=== PATIENT | male | born 1950 | race Caucasian/White ===

== ENCOUNTER 2019-12-10 07:14 | Outpatient (REF) | payer OTHER, SELFPAY ==
[2019-12-10 07:40] LABS: MANUAL DIFF FLAG NO
[2019-12-10 07:46] LABS: Basophils Percent Auto 0.5 % (0-2); Eosinophils Absolute Auto 0.1 X10*3/uL (0.0-0.4); Eosinophils Percent Auto 2.2 % (0-4); Hematocrit 38.9 % (42-52); Hemoglobin 13.2 g/dl (14.0-18.0); Imm Gran Abs Auto 0.02 X10*3/uL (0.00-0.03); Imm Gran Pct Auto 0.3 % (0.0-0.4); Lymphocytes Absolute Auto 1.5 X10*3/uL (1.2-4.9); Lymphocytes Percent Auto 24.8 % (20-40); Mean Corpuscular HGB Conc 33.9 g/dl (31.0-36.0); Mean Corpuscular Hemoglobin 31.1 pg (27.0-33.0); Mean Corpuscular Volume 91.5 fL (80-98); Mean Platelet Volume 10.2 fL (9.4-12.4); Monocytes Absolute Auto 0.5 X10*3/uL (0.1-1.2); Monocytes Percent Auto 8.2 % (2-11); Neutrophils Absolute Auto 3.7 X10*3/uL (2.0-8.3); Platelet Count 186 X10*3/uL (160-400); Red Blood Count 4.25 X10*6/uL (4.60-5.80); Red Cell Distribution Width 12.7 % (11.0-16.0); White Blood Count 5.8 X10*3/uL (4.8-10.8)
[2019-12-10 08:26] LABS: Creatinine Urine 79.32 mg/dL; Microalbumin Urine < 5.0 mg/L
[2019-12-10 08:41] LABS: Glucose Urine UA NEG (NEG); Leukocyte Esterase Urine NEG (NEG); Nitrite Urine NEG (NEG); Urine Blood NEG (NEG); Urine Ketones NEG (NEG); Urine Protein NEG (NEG-TRACE)
[2019-12-10 08:43] LABS: Alanine Aminotransferase 32 U/L (0-40); Albumin Level 4.1 g/dL (3.5-5.0); Alkaline Phosphatase 69 U/L (39-117); Anion Gap 8 (12-20); Aspartate Amino Transferase 20 U/L (5-37); Bilirubin Total 0.6 mg/dL (0.0-1.0); Blood Urea Nitrogen 19 mg/dL (9-16); Carbon Dioxide 31 mmol/L (22-29); Chloride 103 mmol/L (96-108); Cholesterol 141 mg/dL; Estimated Glomerular Filt Rate > 60; Glucose Fasting 161 mg/dL (60-99); HDL Cholesterol 47 mg/dL; LDL Cholesterol Calculated 80 mg/dl; Potassium 4.3 mmol/l (3.3-5.1); Sodium 138 mmol/L (135-145); Total Protein 6.3 g/dL (6.5-8.0); Triglycerides 74 mg/dL
[2019-12-10 08:44] LABS: Appearance Urine CLEAR; Color Urine YELLOW
[2019-12-10 09:01] LABS: Prostate Specific Antigen 2.37 ng/mL (<0.05-4.0)
[2019-12-10 09:27] LABS: Estimated Average Glucose 134 mg/dL; Hemoglobin A1c % 6.3 %
== END 2019-12-10 07:15 | disposition home or self-care (01) ==
LOC: HO.LAB 07:14
PROVIDERS: PCP Internal Medicine; Visit Provider Internal Medicine
DX: Z00.00 Encounter for general adult medical examination without abnormal findings (principal); E11.9 Type 2 diabetes mellitus without complications; E78.00 Pure hypercholesterolemia, unspecified; R97.20 Elevated prostate specific antigen [PSA]; Z12.5 Encounter for screening for malignant neoplasm of prostate
CPT/HCPCS: 36415; 80053; 80061; 81003; 82043; 83036; 84153; 85025

== ENCOUNTER 2020-06-17 07:13 | Outpatient (REF) | payer OTHER, SELFPAY ==
[2020-06-17 08:50] LABS: Estimated Average Glucose 131 mg/dL; Hemoglobin A1C 149.1456 umol/L; Hemoglobin A1c % 6.2 %
[2020-06-17 09:04] LABS: Alanine Aminotransferase 25 U/L (0-40); Alkaline Phosphatase 72 U/L (39-117); Aspartate Amino Transferase 18 U/L (5-37); Bilirubin Direct 0.3 mg/dL (0.0-0.5); Bilirubin Total 0.4 mg/dL (0.0-1.0); Cholesterol 140 mg/dL; Glucose Fasting 135 mg/dL (60-99); HDL Cholesterol 46 mg/dL; LDL Cholesterol Calculated 79 mg/dl; Total Protein 6.3 g/dL (6.5-8.0); Triglycerides 77 mg/dL
[2020-06-17 09:30] LABS: Reflex LDLD? No
== END 2020-06-17 07:14 | disposition home or self-care (01) ==
LOC: HO.LAB 07:13
PROVIDERS: PCP Internal Medicine; Visit Provider Internal Medicine
DX: E78.00 Pure hypercholesterolemia, unspecified (principal); E11.9 Type 2 diabetes mellitus without complications
CPT/HCPCS: 36415; 80061; 80076; 82947; 83036

== ENCOUNTER 2020-12-13 06:51 | Outpatient (REF) | payer OTHER, SELFPAY ==
[2020-12-13 06:57] LABS: MANUAL DIFF FLAG NO
[2020-12-13 07:46] LABS: Basophils Percent Auto 0.6 % (0-2); Eosinophils Absolute Auto 0.1 X10*3/uL (0.0-0.4); Eosinophils Percent Auto 1.8 % (0-4); Hematocrit 39.3 % (42-52); Imm Gran Abs Auto 0.01 X10*3/uL (0.00-0.03); Imm Gran Pct Auto 0.2 % (0.0-0.4); Lymphocytes Absolute Auto 1.6 X10*3/uL (1.2-4.9); Lymphocytes Percent Auto 31.4 % (20-40); Mean Corpuscular HGB Conc 33.1 g/dl (31.0-36.0); Mean Corpuscular Hemoglobin 30.2 pg (27.0-33.0); Mean Corpuscular Volume 91.4 fL (80-98); Mean Platelet Volume 10.6 fL (9.4-12.4); Monocytes Absolute Auto 0.5 X10*3/uL (0.1-1.2); Monocytes Percent Auto 9.2 % (2-11); Neutrophils Absolute Auto 2.9 X10*3/uL (2.0-8.3); Neutrophils Percent Auto 56.8 % (45-73); Platelet Count 207 X10*3/uL (160-400); Red Cell Distribution Width 12.7 % (11.0-16.0); White Blood Count 5.1 X10*3/uL (4.8-10.8)
[2020-12-13 07:47] LABS: Appearance Urine CLEAR; Color Urine STRAW; Glucose Urine UA NEG (NEG); Leukocyte Esterase Urine NEG (NEG); Nitrite Urine NEG (NEG); Urine Blood NEG (NEG); Urine Ketones NEG (NEG); Urine Protein NEG (NEG-TRACE)
[2020-12-13 08:13] LABS: Creatinine Urine 55.84 mg/dL; Microalbumin Urine < 5.0 mg/L
[2020-12-13 08:24] LABS: Estimated Average Glucose 134 mg/dL; Hemoglobin A1c % 6.3 %
[2020-12-13 08:28] LABS: Alanine Aminotransferase 22 U/L (0-40); Alkaline Phosphatase 66 U/L (39-117); Anion Gap 9 (12-20); Aspartate Amino Transferase 20 U/L (5-37); Bilirubin Total 0.6 mg/dL (0.0-1.0); Blood Urea Nitrogen 20 mg/dL (9-16); Carbon Dioxide 30 mmol/L (22-29); Chloride 105 mmol/L (96-108); Cholesterol 137 mg/dL; Estimated Glomerular Filt Rate > 60; Glucose Fasting 129 mg/dL (60-99); HDL Cholesterol 42 mg/dL; LDL Cholesterol Calculated 81 mg/dl; Sodium 140 mmol/L (135-145); Total Protein 6.1 g/dL (6.5-8.0); Triglycerides 73 mg/dL
[2020-12-13 08:35] LABS: PSA,Total (Free>4and<10) 1.87 ng/mL (0.00-4.00)
[2020-12-13 09:42] LABS: Reflex LDLD? No
== END 2020-12-13 06:52 | disposition home or self-care (01) ==
LOC: HO.LAB 06:51
PROVIDERS: PCP Internal Medicine; Visit Provider Internal Medicine
DX: Z00.00 Encounter for general adult medical examination without abnormal findings (principal); Z12.5 Encounter for screening for malignant neoplasm of prostate; R97.20 Elevated prostate specific antigen [PSA]; E11.9 Type 2 diabetes mellitus without complications; E78.00 Pure hypercholesterolemia, unspecified
CPT/HCPCS: 36415; 80053; 80061; 81003; 82043; 83036; 84153; 85025

== ENCOUNTER 2021-06-13 07:01 | Outpatient (REF) | payer OTHER, SELFPAY ==
[2021-06-13 07:15] LABS: MANUAL DIFF FLAG NO
[2021-06-13 07:21] LABS: Basophils Absolute Auto 0.1 X10*3/uL (0.0-0.2); Basophils Percent Auto 0.9 % (0-2); Eosinophils Absolute Auto 0.3 X10*3/uL (0.0-0.4); Eosinophils Percent Auto 4.6 % (0-4); Hematocrit 39.1 % (42.0-52.0); Hemoglobin 13.2 g/dl (14.0-18.0); Imm Gran Abs Auto 0.02 X10*3/uL (0.00-0.03); Imm Gran Pct Auto 0.4 % (0.0-0.4); Lymphocytes Absolute Auto 1.5 X10*3/uL (1.2-4.9); Mean Corpuscular HGB Conc 33.8 g/dl (31.0-36.0); Mean Corpuscular Hemoglobin 30.7 pg (27.0-33.0); Mean Corpuscular Volume 90.9 fL (80.0-98.0); Mean Platelet Volume 9.9 fL (9.4-12.4); Monocytes Absolute Auto 0.5 X10*3/uL (0.1-1.2); Neutrophils Percent Auto 56.1 % (45-73); Platelet Count 197 X10*3/uL (160-400); Red Cell Distribution Width 12.5 % (11.0-16.0); White Blood Count 5.4 X10*3/uL (4.8-10.8)
[2021-06-13 07:55] LABS: Estimated Average Glucose 134 mg/dL; Hemoglobin A1c % 6.3 %
[2021-06-13 09:29] LABS: Alanine Aminotransferase 18 U/L (0-40); Alkaline Phosphatase 68 U/L (39-117); Aspartate Amino Transferase 19 U/L (5-37); Bilirubin Direct 0.3 mg/dL (0.0-0.5); Bilirubin Total 0.6 mg/dL (0.0-1.0); Cholesterol 130 mg/dL; Glucose Fasting 145 mg/dL (60-99); HDL Cholesterol 42 mg/dL; LDL Cholesterol Calculated 74 mg/dl; Total Protein 6.2 g/dL (6.5-8.0); Triglycerides 71 mg/dL
[2021-06-13 09:38] LABS: Reflex LDLD? No
[2021-06-13 09:50] LABS: Vitamin D 25-OH Total 43.4 ng/mL (>30)
== END 2021-06-13 07:02 | disposition home or self-care (01) ==
LOC: HO.LAB 07:01
PROVIDERS: PCP Internal Medicine; Visit Provider Internal Medicine
DX: E11.9 Type 2 diabetes mellitus without complications (principal); E78.00 Pure hypercholesterolemia, unspecified; D64.9 Anemia, unspecified
CPT/HCPCS: 36415; 80061; 80076; 82306; 82947; 83036; 85025

== ENCOUNTER 2021-10-10 15:03 | Outpatient (REF) | payer OTHER, SELFPAY ==
[2021-10-10 15:55] LABS: Blood Urea Nitrogen 19 mg/dL (9-16)
[2021-10-11 06:40] LABS: Estimated Glomerular Filt Rate > 60
== END 2021-10-10 15:04 | disposition home or self-care (01) ==
LOC: HO.LAB 15:03
PROVIDERS: PCP Internal Medicine; Visit Provider Physician Assistant
DX: C06.9 Malignant neoplasm of mouth, unspecified (principal)
CPT/HCPCS: 36415; 82565; 84520

== ENCOUNTER 2021-10-12 07:28 | Outpatient (REF) | payer OTHER, SELFPAY ==
--- NOTE | ~2021-10-12 | CT_ITS ---
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 COMPARISON: None available. TECHNIQUE: Following the intravenous administration of 100 mL of Omnipaque 350 intravenous contrast, helical imaging was performed in the axial plane with generation of coronal and sagittal reformatted images. This CT examination was performed using dose optimization techniques as appropriate, variously including the following: *Automated exposure control *Adjustment of mA and/or kV according to patient size (this includes techniques or standardized protocols for targeted exams where dose is matched to indication/reason for exam; i.e. extremities or head) *Use of iterative reconstruction technique FINDINGS: No definite oral cavity/oropharyngeal mass lesions identified however assessment is limited by the degree of dental streak artifact. In speaking with the referring provider, a posterior gingivobuccal mucosal lesion has been identified on exam and on PET/CT. For future neck CT studies, a puffed cheek neck CT with contrast would be helpful in visualizing this area. The parotid glands are homogeneous in attenuation. The submandibular glands are normal. The thyroid gland is normal. No retropharyngeal fluid collection is seen. The laryngeal structures are normal. The parapharyngeal fat is preserved. The carotid sheath vasculature opacify normally. The superior mediastinum is unremarkable. There is biapical pleural parenchymal scarring. The mastoid air cells and visualized portions of the paranasal sinuses are well-aerated. Cervical spondylosis. The imaged portions of the brain parenchyma are unremarkable. CT/CT soft tissue neck w con IMPRESSION: - No definite oral cavity/oropharyngeal mass lesions identified however assessment is limited by the degree of dental streak artifact. In speaking with the referring provider, a posterior gingivobuccal mucosal lesion has been identified on exam and on PET/CT. For future neck CT studies, a puffed cheek neck CT with contrast would be helpful in visualizing this area. - Nonpathologic size criteria lymph nodes throughout the suprahyoid and infrahyoid neck bilaterally without pathologic size criteria lymphadenopathy.
[2021-10-12] MEDS: iohexoL 350 MG/ML 100 ML INFUS..BTL IV (08:09)
== END 2021-10-12 07:29 | disposition home or self-care (01) ==
LOC: HO.CT 07:28
PROVIDERS: PCP Internal Medicine; Visit Provider Otolaryngology
DX: C06.9 Malignant neoplasm of mouth, unspecified (principal)
CPT/HCPCS: 70491; Q9967

== ENCOUNTER 2021-12-15 06:41 | Outpatient (REF) | payer OTHER, SELFPAY ==
[2021-12-15 06:46] LABS: MANUAL DIFF FLAG NO
[2021-12-15 07:25] LABS: Basophils Percent Auto 0.7 % (0-2); Eosinophils Absolute Auto 0.1 X10*3/uL (0.0-0.4); Hematocrit 38.6 % (42.0-52.0); Imm Gran Abs Auto 0.02 X10*3/uL (0.00-0.03); Imm Gran Pct Auto 0.4 % (0.0-0.4); Lymphocytes Absolute Auto 1.7 X10*3/uL (1.2-4.9); Mean Corpuscular HGB Conc 33.7 g/dl (31.0-36.0); Mean Corpuscular Hemoglobin 31.2 pg (27.0-33.0); Mean Corpuscular Volume 92.6 fL (80.0-98.0); Mean Platelet Volume 10.1 fL (9.4-12.4); Monocytes Absolute Auto 0.6 X10*3/uL (0.1-1.2); Monocytes Percent Auto 10.8 % (2-11); Neutrophils Absolute Auto 3.1 x10*3/uL (2.0-8.3); Neutrophils Percent Auto 56.1 % (45-73); Platelet Count 203 X10*3/uL (160-400); Red Blood Count 4.17 X10*6/uL (4.60-5.80); Red Cell Distribution Width 13.2 % (11.0-16.0); White Blood Count 5.6 X10*3/uL (4.8-10.8)
[2021-12-15 07:27] LABS: Appearance Urine Clear; Color Urine Yellow; Glucose Urine UA Negative (Negative); Leukocyte Esterase Urine Negative (Negative); Nitrite Urine Negative (Negative); Urine Blood Negative (Negative); Urine Ketones Negative (Negative); Urine Protein Negative (Neg-Trace)
[2021-12-15 07:33] LABS: Estimated Average Glucose 137 mg/dL; Hemoglobin A1c % 6.4 %
[2021-12-15 07:46] LABS: Alanine Aminotransferase 18 U/L (0-40); Albumin Level 4.2 g/dL (3.5-5.0); Alkaline Phosphatase 84 U/L (39-117); Anion Gap 15 (12-20); Aspartate Amino Transferase 17 U/L (5-37); Bilirubin Total 0.7 mg/dL (0.0-1.0); Blood Urea Nitrogen 15 mg/dL (9-16); Calcium 9.4 mg/dL (8.4-10.2); Carbon Dioxide 30 mmol/L (22-29); Chloride 101 mmol/L (96-108); Cholesterol 151 mg/dL; Estimated Glomerular Filt Rate > 60; Glucose Fasting 139 mg/dL (60-99); HDL Cholesterol 52 mg/dL; LDL Cholesterol Calculated 85 mg/dl; Potassium 4.1 mmol/L (3.3-5.1); Sodium 142 mmol/L (135-145); Total Protein 6.3 g/dL (6.5-8.0); Triglycerides 70 mg/dL
[2021-12-15 08:07] LABS: Prostate Specific Antigen 2.48 ng/mL (<0.05-4.0)
[2021-12-15 08:52] LABS: Creatinine Urine 72.12 mg/dL; Microalbumin Urine < 5.0 mg/L
== END 2021-12-15 06:42 | disposition home or self-care (01) ==
LOC: HO.LAB 06:41
PROVIDERS: PCP Internal Medicine; Visit Provider Internal Medicine
DX: Z00.00 Encounter for general adult medical examination without abnormal findings (principal); Z12.5 Encounter for screening for malignant neoplasm of prostate; E11.9 Type 2 diabetes mellitus without complications; E78.00 Pure hypercholesterolemia, unspecified; I10 Essential (primary) hypertension
CPT/HCPCS: 36415; 80053; 80061; 81003; 82043; 83036; 84153; 85025

== ENCOUNTER 2022-06-08 06:29 | Outpatient (REF) | payer OTHER, SELFPAY ==
[2022-06-08 07:34] LABS: Estimated Average Glucose 140 mg/dL; Hemoglobin A1c % 6.5 %
[2022-06-08 08:14] LABS: Alanine Aminotransferase 18 U/L (0-40); Alkaline Phosphatase 85 U/L (39-117); Aspartate Amino Transferase 17 U/L (5-37); Bilirubin Direct 0.3 mg/dL (0.0-0.5); Bilirubin Total 0.9 mg/dL (0.0-1.0); Cholesterol 145 mg/dL; Glucose Fasting 123 mg/dL (60-99); HDL Cholesterol 44 mg/dL; LDL Cholesterol Calculated 87 mg/dl; Triglycerides 72 mg/dL
[2022-06-08 08:21] LABS: Reflex LDLD? No
== END 2022-06-08 06:30 | disposition home or self-care (01) ==
LOC: HO.LAB 06:29
PROVIDERS: PCP Internal Medicine; Visit Provider Internal Medicine
DX: E11.9 Type 2 diabetes mellitus without complications (principal); E78.00 Pure hypercholesterolemia, unspecified
CPT/HCPCS: 36415; 80061; 80076; 82947; 83036

== ENCOUNTER 2022-08-20 07:34 | Outpatient (REF) | payer OTHER, SELFPAY ==
--- NOTE | ~2022-08-20 | CT_ITS ---
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 COMPARISON: None available. TECHNIQUE: Contiguous axial thin section helical images of the abdomen were performed before and after the administration of oral contrast and 85 mL of Omnipaque 350 intravenous contrast. The data set was reformatted in the coronal and sagittal planes and reviewed on an independent workstation. This CT examination was performed using dose optimization techniques as appropriate, variously including the following: *Automated exposure control *Adjustment of mA and/or kV according to patient size (this includes techniques or standardized protocols for targeted exams where dose is matched to indication/reason for exam; i.e. extremities or head) *Use of iterative reconstruction technique DLP: 329 mGy-cm FINDINGS: LUNG BASES: The visualized lung bases are unremarkable. LIVER, GALLBLADDER, AND BILIARY TREE: The liver is normal in size, shape, and attenuation. There is a 1 cm benign simple cyst present at the tip of the right lobe of the liver (3:30) with an additional smaller cyst just below this (10:205). No worrisome solid focal hepatic lesion or biliary ductal dilatation is present. The gallbladder is unremarkable with no evidence of radiopaque gallstones, gallbladder wall thickening, or obvious pericholecystic inflammatory changes. PANCREAS: Unremarkable. SPLEEN: Unremarkable. ADRENAL GLANDS: No convincing evidence of an adrenal mass. There is some minimal thickening of the adrenal gland on the left. KIDNEYS AND URETERS: The kidneys are normal in size, shape, and attenuation. No hydronephrosis, hydroureter, or calculi seen. No perinephric stranding. GASTROINTESTINAL TRACT: The small and large bowel are unremarkable. The appendix is unremarkable. ABDOMINAL WALL: No significant hernia is appreciated. LYMPH NODES: No retroperitoneal lymphadenopathy. There is partial visualization of the cystic structure just below the level of the umbilicus which I suspect is a distended bladder, although I cannot be sure of this. VASCULAR: Unremarkable. OSSEOUS STRUCTURES: Unremarkable. CT/CT abdomen wo/w IV con IMPRESSION: 1. No evidence of metastatic disease in the abdomen. 2. There is no evidence of an adrenal mass. 3. Incidental note made of benign hepatic cysts. Fleischner guidelines were followed.
[2022-08-20 14:34] LABS: Creatinine POC 0.6 mg/dL (0.5-1.4); GFR POC > 60
== END 2022-08-20 07:35 | disposition home or self-care (01) ==
LOC: HO.CT 07:34
PROVIDERS: PCP Internal Medicine; Visit Provider Otolaryngology
DX: C03.1 Malignant neoplasm of lower gum (principal)
CPT/HCPCS: 74170; 82565

== ENCOUNTER 2022-12-21 07:13 | Outpatient (REF) | payer OTHER, SELFPAY ==
[2022-12-21 07:24] LABS: MANUAL DIFF FLAG NO
[2022-12-21 07:40] LABS: Basophils Percent Auto 0.7 % (0-2); Eosinophils Absolute Auto 0.1 X10*3/uL (0.0-0.4); Eosinophils Percent Auto 1.6 % (0-4); Hematocrit 40.3 % (42.0-52.0); Hemoglobin 13.6 g/dl (14.0-18.0); Imm Gran Abs Auto 0.02 X10*3/uL (0.00-0.03); Imm Gran Pct Auto 0.4 % (0.0-0.4); Lymphocytes Absolute Auto 1.5 X10*3/uL (1.2-4.9); Lymphocytes Percent Auto 28.2 % (20-40); Mean Corpuscular HGB Conc 33.7 g/dl (31.0-36.0); Mean Corpuscular Hemoglobin 31.1 pg (27.0-33.0); Monocytes Absolute Auto 0.5 X10*3/uL (0.1-1.2); Monocytes Percent Auto 8.8 % (2-11); Neutrophils Absolute Auto 3.3 x10*3/uL (2.0-8.3); Neutrophils Percent Auto 60.3 % (45-73); Platelet Count 200 X10*3/uL (160-400); Red Blood Count 4.38 X10*6/uL (4.60-5.80); Red Cell Distribution Width 12.8 % (11.0-16.0); White Blood Count 5.5 X10*3/uL (4.8-10.8)
[2022-12-21 07:47] LABS: Estimated Average Glucose 131 mg/dL; Hemoglobin A1c % 6.2 % (<6.0)
[2022-12-21 08:05] LABS: Alanine Aminotransferase 19 U/L (0-40); Albumin Level 4.1 g/dL (3.5-5.0); Alkaline Phosphatase 70 U/L (39-117); Anion Gap 12 (12-20); Aspartate Amino Transferase 18 U/L (5-37); Bilirubin Total 0.6 mg/dL (0.0-1.0); Blood Urea Nitrogen 16 mg/dL (9-16); Calcium 9.8 mg/dL (8.4-10.2); Carbon Dioxide 29 mmol/L (22-29); Chloride 102 mmol/L (96-108); Cholesterol 151 mg/dL (<200); Estimated Glomerular Filt Rate > 60; Glucose Fasting 151 mg/dL (60-99); HDL Cholesterol 55 mg/dL (>40); LDL Cholesterol Calculated 83 mg/dL (<100); Potassium 4.2 mmol/L (3.3-5.1); Sodium 139 mmol/L (135-145); Total Protein 6.7 g/dL (6.5-8.0); Triglycerides 67 mg/dL (<150)
[2022-12-21 08:27] LABS: PSA,Total (Free>4and<10) 4.72 ng/mL (0.00-4.00)
[2022-12-21 09:44] LABS: Appearance Urine Clear; Color Urine Yellow; Glucose Urine UA Negative (Negative); Leukocyte Esterase Urine Negative (Negative); Nitrite Urine Negative (Negative); PH 6.5 (5.0-9.0); Urine Blood Negative (Negative); Urine Ketones Negative (Negative); Urine Protein Negative (Neg-Trace)
[2022-12-21 10:01] LABS: Creatinine Urine 53.87 mg/dL; Microalbumin Urine < 5.0 mg/L
[2022-12-24 11:13] LABS: Free Prostate Spec Ag 0.5 ng/mL; Percent Free Prostate Spec Ag 13 % (calc) (>25)
== END 2022-12-21 07:14 | disposition home or self-care (01) ==
LOC: HO.LAB 07:13
PROVIDERS: PCP Internal Medicine; Visit Provider Internal Medicine
DX: Z00.00 Encounter for general adult medical examination without abnormal findings (principal); Z12.5 Encounter for screening for malignant neoplasm of prostate; E11.9 Type 2 diabetes mellitus without complications; I10 Essential (primary) hypertension; E78.00 Pure hypercholesterolemia, unspecified
CPT/HCPCS: 36415; 80053; 80061; 81003; 82043; 82570; 83036; 84153; 84154; 85025

== ENCOUNTER 2023-06-20 08:16 | Outpatient (REF) | payer OTHER, SELFPAY ==
[2023-06-20 09:24] LABS: Estimated Average Glucose 134 mg/dL; Hemoglobin A1c % 6.3 % (<6.0)
[2023-06-20 09:43] LABS: Alanine Aminotransferase 19 U/L (0-40); Alkaline Phosphatase 66 U/L (39-117); Aspartate Amino Transferase 17 U/L (5-37); Bilirubin Direct 0.2 mg/dL (0.0-0.5); Bilirubin Total 0.5 mg/dL (0.0-1.0); Cholesterol 135 mg/dL (<200); Glucose Fasting 145 mg/dL (60-99); HDL Cholesterol 48 mg/dL (>40); LDL Cholesterol Calculated 76 mg/dL (<100); Total Protein 6.3 g/dL (6.5-8.0); Triglycerides 56 mg/dL (<150)
[2023-06-20 10:46] LABS: Reflex LDLD? No
== END 2023-06-20 08:17 | disposition home or self-care (01) ==
LOC: HO.LAB 08:16
PROVIDERS: PCP Internal Medicine; Visit Provider Internal Medicine
DX: E11.9 Type 2 diabetes mellitus without complications (principal); E78.00 Pure hypercholesterolemia, unspecified
CPT/HCPCS: 36415; 80061; 80076; 82947; 83036

== ENCOUNTER 2023-12-24 07:28 | Outpatient (REF) | payer OTHER, SELFPAY ==
[2023-12-24 08:01] LABS: MANUAL DIFF FLAG NO
[2023-12-24 08:21] LABS: Basophils Percent Auto 0.6 % (0-2); Eosinophils Absolute Auto 0.1 X10*3/uL (0.0-0.4); Eosinophils Percent Auto 1.9 % (0-4); Hematocrit 40.8 % (42.0-52.0); Hemoglobin 13.8 g/dl (14.0-18.0); Imm Gran Abs Auto 0.01 X10*3/uL (0.00-0.03); Imm Gran Pct Auto 0.2 % (0.0-0.4); Lymphocytes Absolute Auto 1.4 X10*3/uL (1.2-4.9); Lymphocytes Percent Auto 25.6 % (20-40); Mean Corpuscular HGB Conc 33.8 g/dl (31.0-36.0); Mean Corpuscular Hemoglobin 30.9 pg (27.0-33.0); Mean Corpuscular Volume 91.5 fL (80.0-98.0); Mean Platelet Volume 10.1 fL (9.4-12.4); Monocytes Absolute Auto 0.5 X10*3/uL (0.1-1.2); Monocytes Percent Auto 9.1 % (2-11); Neutrophils Absolute Auto 3.4 x10*3/uL (2.0-8.3); Neutrophils Percent Auto 62.6 % (45-73); Platelet Count 196 X10*3/uL (160-400); Red Blood Count 4.46 X10*6/uL (4.60-5.80); Red Cell Distribution Width 12.5 % (11.0-16.0); White Blood Count 5.4 X10*3/uL (4.8-10.8)
[2023-12-24 08:37] LABS: Appearance Urine Clear; Color Urine Yellow; Glucose Urine UA Negative (Negative); Leukocyte Esterase Urine Negative (Negative); Nitrite Urine Negative (Negative); Specific Gravity - Urine 1.015 (1.005-1.025); Urine Blood Negative (Negative); Urine Ketones Negative (Negative); Urine Protein Negative (Neg-Trace)
[2023-12-24 08:43] LABS: Estimated Average Glucose 137 mg/dL; Hemoglobin A1c % 6.4 % (<6.0); Total Hemoglobin (HGBA1C) 3365.0453 umol/L
[2023-12-24 08:45] LABS: Bacteria Urine None Seen (None Seen); Hyaline Casts Urine 0-2 /LPF (0-2); RBC Urine 0-2 /HPF (0-2); Squamous Epithelial Cell Urine 0-2 /HPF (0-2); WBC Urine 0-5 /HPF (0-5)
[2023-12-24 09:16] LABS: Creatinine Urine 71.26 mg/dL; Microalbumin Urine < 5.0 mg/L
[2023-12-24 09:18] LABS: Alanine Aminotransferase 26 U/L (0-40); Albumin Level 4.1 g/dL (3.5-5.0); Anion Gap 10 (12-20); Aspartate Amino Transferase 29 U/L (5-37); Bilirubin Total 0.6 mg/dL (0.0-1.0); Blood Urea Nitrogen 19 mg/dL (9-16); Calcium 9.6 mg/dL (8.4-10.2); Carbon Dioxide 31 mmol/L (22-29); Chloride 104 mmol/L (96-108); Cholesterol 132 mg/dL (<200); Estimated Glomerular Filt Rate > 60; Glucose Fasting 147 mg/dL (60-99); HDL Cholesterol 45 mg/dL (>40); Potassium 4.7 mmol/L (3.3-5.1); Sodium 140 mmol/L (135-145); Total Protein 6.4 g/dL (6.5-8.0); Triglycerides 68 mg/dL (<150)
[2023-12-24 09:19] LABS: Alkaline Phosphatase 65 U/L (39-117); LDL Cholesterol Calculated 74 mg/dL (<100)
[2023-12-24 09:23] LABS: Vitamin D 25-OH Total 69.1 ng/mL (>30)
[2023-12-26 10:23] LABS: Free Prostate Spec Ag 0.7 ng/mL; Percent Free Prostate Spec Ag 14 % (calc) (>25); Prostate Specific Ag Total 4.9 ng/mL (< OR = 4.0)
== END 2023-12-24 07:29 | disposition home or self-care (01) ==
LOC: HO.LAB 07:28
PROVIDERS: PCP Internal Medicine; Visit Provider Internal Medicine
DX: Z00.00 Encounter for general adult medical examination without abnormal findings (principal); E11.9 Type 2 diabetes mellitus without complications; I10 Essential (primary) hypertension; Z12.5 Encounter for screening for malignant neoplasm of prostate
CPT/HCPCS: 36415; 80053; 80061; 81001; 82043; 82306; 82570; 83036; 84153; 84154; 85025

== ENCOUNTER 2024-04-21 15:03 | Emergency (ER) | payer OTHER, SELFPAY ==
--- NOTE | ~2024-04-21 | XR_ITS ---
EXAMINATION: XR CHEST CLINICAL INFORMATION: fever congestion COMPARISON: None available. TECHNIQUE: 2 views of the chest were obtained. FINDINGS: The cardiac, hilar, and mediastinal contours are normal. The lungs are somewhat hyperaerated, however clear bilaterally. There is no pneumothorax or pleural effusion. There is no focal osseous or soft tissue abnormality. XR/XR chest 2V IMPRESSION: No active pulmonary disease. Electronically signed by: Tam Márquez MD 04/21/2024 04:31 PM THEODORE JASSO
[2024-04-21 15:43] VITALS: BP 146/57; PULSE 95; RESP 18; TEMP 39.5; O2SAT 97; BMI 23.0
[2024-04-21] MEDS: Acetaminophen 325 MG TABLET 650 MG PO (15:53)
--- NOTE | 2024-04-21 16:28 | ED.GENADULT ---
HPI - General Adult General Chief complaint: General Medical Stated complaint: Fever/Flu like symptoms Time Seen by Provider: 04/21/24 18:10 History of Present Illness ED Provider: Dr. Manzanares HPI narrative: 73 y/o M patient; without significant PMH; presents from home reporting 72 hours of sore throat, fever, generalized body aches. + known sick contacts. He denies: nausea/vomiting, abdominal pain, back pain, chest pain, syncope. Related Data Allergies Allergy/AdvReac Type Severity Reaction Status Date / Time No Known Allergies Allergy Verified 04/21/24 15:46 Review of Systems Review of Systems: Yes all other systems are reviewed and are negative PMFSH Past Medical History Attestation statement: The following information was validated with the patient. Source: unable to obtain Social History Social History Alcohol intake: current Alcohol intake frequency: 3 or more drinks per day Alcohol type: beer and hard liquor Smoked in Last 30 Days: Yes Use of substances other than those prescribed or required for medical reasons: No Advance Directives: No Advance Directives Information Provided: No Physical Exam ED Vital Signs: Vital Signs - 24 hr 04/21/24 15:43 04/21/24 18:24 04/21/24 18:56 Temperature 103.1 F H 97 F Pulse Rate 95 97 Respiratory Rate 18 24 H Blood Pressure 146/57 H 109/45 L Pulse Oximetry 97 100 97 Oxygen Delivery Method Room Air Aerosol Mask Room Air Oxygen Flow Rate 6 04/21/24 19:02 04/21/24 19:03 Temperature 101.2 F H 101.2 F H Pulse Rate 80 Respiratory Rate 16 Blood Pressure 119/58 L Pulse Oximetry 93 Oxygen Delivery Method Room Air Oxygen Flow Rate BMI result Body Mass Index 23.0 Patient is febrile (103.1), mildly hypertensive. Const General: cooperative HENMT Head: Yes normal to inspection and Yes atraumatic Eyes General: appearance normal, both eyes and all related structures Pupils: Equal, round and reactive pupils present EOM: EOMs intact bilaterally Neck Neck: Yes normal visual inspection, Yes full ROM, Yes supple and No tender Chest Chest palpation & inspection: normal inspection of the chest and normal palpation of entire chest wall Resp Effort & Inspection: normal respiratory effort, able to speak in complete sentences, no cough and no respiratory distress Auscultation: clear to auscultation bilaterally Cardio Rate: regular rate Rhythm: regular rhythm Peripheral pulses: Peripheral pulses 2+ throughout GI Inspection: Yes normal to inspection, No Abdominal wall edema and No distended Palpation (GI): Soft to palpation, not firm, nontender, no guarding and not rigid Auscultation: normal bowel sounds Back/Spine/Pelvis Back: No back tenderness Neuro Cranial nerves: Yes Equal, round and reactive pupils present Course Course Course Narrative: Patient is febrile and hemodynamically stable. Received tylenol as anti-pyretic. Will obtain CXR, respiratory swab, and labs. XR reviewed. No focal infiltrates noted. Labs reviewed. No leukocytosis. + Influenza. Plan: Discharge to home with PCP follow up Return precautions given Medications Administered Discontinued Medications Generic Name Dose Route Start Last Admin Trade Name Freq PRN Reason Stop Dose Admin Acetaminophen 650 mg 04/21/24 15:51 04/21/24 15:53 Acetaminophen 325 Mg Tablet PO 04/21/24 15:52 650 mg ONCE ONE Administration Medical Decision Making Lab Data 04/21/24 18:23 04/21/24 18:23 Labs: Lab Results 04/21/24 04/21/24 04/21/24 Range/Units 18:23 18:25 18:31 WBC 8.0 (4.8-10.8) X10*3/uL RBC 4.23 L (4.60-5.80) X10*6/uL Hgb 13.2 L (14.0-18.0) g/dl Hct 37.6 L (42.0-52.0) % MCV 88.9 (80.0-98.0) fL MCH 31.2 (27.0-33.0) pg MCHC 35.1 (31.0-36.0) g/dl RDW 13.2 (11.0-16.0) % Plt Count 143 L D (160-400) X10*3/uL MPV 10.4 (9.4-12.4) fL Immature Gran % (Auto) 0.9 H (0.0-0.4) % Neut % (Auto) 82.2 H (45-73) % Lymph % (Auto) 5.6 L (20-40) % [place] % (Auto) 11.2 H (2-11) % Eos % (Auto) 0.0 (0-4) % Baso % (Auto) 0.1 (0-2) % Lymph # (Auto) 0.5 L (1.2-4.9) X10*3/uL [place] # (Auto) 0.9 (0.1-1.2) X10*3/uL Eos # (Auto) 0.0 (0.0-0.4) X10*3/uL Baso # (Auto) 0.0 (0.0-0.2) X10*3/uL Abs Immat Gran (auto) 0.07 H (0.00-0.03) X10*3/uL Absolute Neuts (auto) 6.6 (2.0-8.3) x10*3/uL Absolute Nucleated RBC 0.000 (0.0-0.012) X10*3/uL Nucleated RBC % (auto) 0.0 (0.0-0.2) /100WBC Sodium 135 (135-145) mmol/L Potassium 3.9 (3.3-5.1) mmol/L Chloride 100 (96-108) mmol/L Carbon Dioxide 24 (22-29) mmol/L Anion Gap 15 (12-20) BUN 20 H (9-16) mg/dL Creatinine 0.82 (0.5-1.4) mg/dL Estim Creat Clear Calc 84.8 Estimated GFR > 60 Random Glucose 120 H (60-115) mg/dL Lactic Acid 1.0 (0.5-2.0) mmol/L Calcium 8.5 D (8.4-10.2) mg/dL Total Bilirubin 0.4 (0.0-1.0) mg/dL AST 37 (5-37) U/L ALT 25 (0-40) U/L Alkaline Phosphatase 55 (39-117) U/L Total Protein 6.9 (6.5-8.0) g/dL Albumin 3.9 (3.5-5.0) g/dL Influenza Type A (PCR) POSITIVE A (Negative) Influenza Type B (PCR) NEGATIVE (Negative) RSV RNA Qual (PCR) NEGATIVE (Negative) SARS-CoV-2 RNA (RT-PCR) NEGATIVE (Negative) S. pyogenes GrpA TANISHA Negative (Negative) Radiology Impression Discussion of test interpretation with radiology: I have reviewed the radiologist's reading. Radiologist Impression: EXAMINATION: XR CHEST CLINICAL INFORMATION: fever congestion COMPARISON: None available. TECHNIQUE: 2 views of the chest were obtained. FINDINGS: The cardiac, hilar, and mediastinal contours are normal. The lungs are somewhat hyperaerated, however clear bilaterally. There is no pneumothorax or pleural effusion. There is no focal osseous or soft tissue abnormality. XR/XR chest 2V IMPRESSION: No active pulmonary disease. Electronically signed by: Tam Márquez MD 04/21/2024 04:31 PM [facility] Discharge Plan Discharge Clinical Impression: Influenza A Patient Disposition: Home, Self-Care Instructions: Influenza (DC) Print Language: Chinese
[2024-04-21 18:24] VITALS: BP 109/45; PULSE 97; RESP 24; TEMP 36.1; O2SAT 100
--- NOTE | 2024-04-21 18:26 | PC.NURSE ---
Pt A+OX3 on arrival; Duoneb from EMS still going; pt speaking full sentences; endorses severe SOB at home with syncopal episode and falls over the last week; denies head striike; ST per monitor; afebrile
[2024-04-21 18:30] LABS: MANUAL DIFF FLAG NO
--- OUTSIDE RECORDS SUMMARY | 2024-04-21 18:44 | XMS_ITS | Clinical Summary ---
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 Active tamsulosin HCl (TAMSULOSIN ORAL) Take 0.4 mg by mouth once a day. Active ascorbic acid (VITAMIN C) 500 mg tablet Take 500 mg by mouth every other day. Active cholecalciferol , vitamin D3, 125 mcg (5,000 unit) capsule Take 5,000 Units by mouth every other day. Active acetaminophen (TYLENOL) 325 mg tablet Take 2 tablets (650 mg total) by mouth every 6 hours. 2 Active senna (SENOKOT) 8.6 mg tablet Take 1 tablet (8.6 mg total) by mouth once a day. 2 Active Additional Information Patient not taking.Reported on 12/06/2021 polyethylene glycol 3350 (MIRALAX) 17 gram packet Take 1 packet (17 g total) by mouth once a day. Mix powder in 4 to 8 oz of water, juice, coffee, or tea daily as needed for constipation. 2 Active Additional Information Patient not taking.Reported on 12/06/2021 chlorhexidine (PERIDEX) 0.12% solution Rinse mouth with 15 mL 4 times a day. Do not swallow. 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 Family History Medical History Relation Name Comments Alzheimer's disease Father Heart failure Mother Hypertension Mother Kidney disease Mother Relation Name Status Comments Father Mother Social History Tobacco Use Types Packs/Day Years Used Date Smoking Tobacco: Never Smokeless Tobacco: Never Tobacco Cessation:Counseling Given: Not Answered Alcohol Use Standard Drinks/Week Comments Never 0 (1 standard drink = 0.6 oz pur e alcohol) Sex and Gender Information Value Date Recorded Sex Assigned at Male 10/15/2021 4:11 PM EDT Legal Sex Male 1:18 PM EDT Gender Identity Male 10/15/2021 4:11 PM EDT Sexual Orientation Straight 10/15/2021 4 :11 PM EDT Last Filed Vital Signs Vital Sign Reading Time Taken Comments Blood Pressure 125/65 11/04/2021 8:51 AM EDT Pulse 72 11/04/2021 8:51 AM EDT Temperature 36.5 ??C (97.7 ??F) 11/04/2021 8:51 AM ED T Respiratory Rate 18 11/04/2021 8:51 AM EDT Oxygen Saturation 96% 11/04/2021 8:51 AM EDT Inhaled Oxygen Concentration - - Weight 77.7 kg (171 lb 6.4 oz) 03/16/2022 10:59 AM EST Height 175.3 cm (5' 9 ) 03/16/2022 10:59 AM EST Body Mass Index 25.31 03/16/2022 10:59 AM EST Plan of Treatment Health Maintenance Due Date Last Done Comments Cologuard 1950 Colon Cancer Screening 1950 Colonoscopy 1950 FOBT / Fit Test 1950 Hepatitis C Screening 1950 Sigmoidoscopy 1950 COVID-19 Vaccine (#1) 1957 Pneumococcal Vaccine: 50+ Ye ars (1 of 2 - PCV) 07/22/1971 Zoster Vaccines (1 of 2) 07/22/1971 DTaP,Tdap,and Td Vaccines (1 - Tdap) 1974 Influenza Vaccine (#1) 2023 Alcohol/Substance Use Screening 03/04/2024 Depression Screening and Follow-Up 03/04/2024 Health Care Proxy Review 03/04/2024 Social Drivers of Health Irene ual Screening 03/04/2024 RSV Vaccine (60+ years old a nd patients) (1 - 1-dose 75+ series) 07/22/2027 Hepatitis B Vaccines Aged Out No long er eligible based on patient's age to complete this topic Insurance [facility] Member Subscriber Plan / Payer (Ef fective 2021-Present) Name:Tejinder Ramirez Relation to Subscriber:Self Name:Tejinder Ramirez Payer ID:[id number] Type:HMO Address: [facility], [address] [phone] MEDICARE Advance Directives * Full Code (Latest Code Status on File) Date Activated Date Inactivated Comments 11/03/2021 11:51 AM 11/04/2021 3:03 PM Healthcare Agents on File Name Relationship Healthcare Agent Relationshi p Communication Noemi Ramirez Spouse Next of Kin [email or web address] Care Teams Needle Punch Machine Operator Relationship Specialty Start Date End Date Rahul Patel [address] [place] [address] dr Nir Loyola [place] [id number] PCP - General Internal Medicine 09/22/21
--- OUTSIDE RECORDS SUMMARY | 2024-04-21 18:44 | XMS_ITS | Data Portability ---
Author Organization [place] - [facility], Allergy Address [address] [place] [phone] Care Team Providers Care Director Clinical Information Services Name Role Phone PARADISE LANGLEY Primary Care Provider Assessment No assessment recorded. Plan of Treatment Reminders Order Date Submit Date Provider Last Modified By Organization Details Last Modified Time Details Appointments Establish ed 15 2024 10:30A M ADARSH MELENDEZ MD Not available Not available Not available Lab None recorded. Referral None recorded. Procedures None recorded. Surgeries None recorded. Imaging None recorded. Medication Orders None recorded. Patient TargetsNo targets recorded. Patient InstructionsNo instructions recorded. Reason for Referral None Reported. Results Created Date Observation Date Name Description Value Unit Range Abnormal Flag Note LastModifiedBy Organization Detail LastModifiedTime 10/24/19 24 08/28/2022 imagi ng/di agnos tic resul t No observ ation record ed. [email or web address] Not Available 20:23:21 10/24/19 24 09/07/2021 imagi ng/di agnos tic resul t No observ ation record ed. [email or web address] Not Available 20:23:32 Result Notes None recorded. 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 Procedures Surgical History Date Name Laterality Status Provider Name and Address Organization Details Recorded Time tonsillectomy completed ADARSH MELENDEZ MD [address] [place] [address], [phone], [facility] 10/15/2023 10:20:20 Appendectomy completed ADARSH MELENDEZ MD [address] [place] [address], [phone], [facility] 10/15/2023 10:20:27 Imaging Results Imaging Date Name Status LastModified by Organiz ation Details LastModified Time 08/28/2022 imaging/diag nostic result completed Information not available 10/24/2023 20:23:21 09/07/2021 imaging/diag nostic result completed Information not available 10/24/2023 20:23:32 Procedure Notes None recorded. Medical Equipment None Reported. Allergies No known drug allergies Medications Name Sig Start Date Stop Date Status Note LastModified by Organization Details LastModified Time Prescript ion - Prior Authoriza tion Request active Script Copy/Tamie or Auth^ ipt Copy/Tamie or Auth_ Not Available Not Available Not Available Flomax 0.4 mg capsule Take 1 capsule every day by oral route. active Not Available Not Available No t Available glyburide 5 mg tablet TAKE 1 TABLET BY MOUTH IN THE MORNING AND 1/2 TABLET IN THE EVENING active Not Available Not Available No t Available lorazepam 0.5 mg tablet 12/26 completed Medicati on ID: [id number] B rand Name: juan umana Send Method: E-Prescr ibed Sub s Allowed: subs OK Speci al Instruct ion: TAKE 1 TABLET BY MOUTH 1 HOUR PRIOR TO DENTAL DIRECTED Medicat ionGener icName: mattnallely lyndsay Not Available Not Available Not Available Lipitor 40 mg tablet Take 1 tablet every day by oral route. active Not Available Not Available No t Available finasteri de 5 mg tablet Take 1 tablet every day by oral route. active Not Available Not Available No t Available Vitals Date Recorded Body height Body mass index (BMI) Body weight Provider Name and Address Organization Details Last Updated DateTime 10/15/2023 177.8 cm 24.6 kg/m2 87992.09 g Yvette Betancourt [place] - [facility] 10/15/2023 10:08:24 Date Recorded Body height Body mass index (BMI) Body weight Provider Name and Address Organization Details Last Updated DateTime 11/12/2023 177.8 cm 24.5 kg/m2 70082.3 g Yvette Betancourt [place] - [facility] 11/12/2023 13:01:39 Social History None recorded. Functional Status None recorded. Mental Status None recorded. Family History Nothing Reported. Medical History No medical history recorded. 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 Since his last visit, he noted some nodular swelling inferior to the left lobe, since resolved though since mildly tender. Good salivary flow. No palpable nodule on exam. No neck adenopathy . Likely small node versus blocked duct. Reviewed salivary gland precaution s in case recurrence , with follow up if no improvemen t within a few weeks. Will keep [facility] visit in February. Health Concerns Section Related Observation LastModified by Organization Detai ls LastModified Time None Recorded Concern Status LastModified by Organization Details LastModified Time None Recorded Advance Directives Directive None Recorded Payers Encounter Date Sequence Insurance Name Policy Number Policy Anaya Covered Member ID Anaya Member ID Guarantor Name 10/15/2023 1 [facility] [id number] Tejinder Xiao Ashley [id number] Tejinder Xiao Ashley 11/12/2023 1 [facility] [place] [id number] Tejinder Xiao Ashley [id number] Tejinder Xiao Ashley Notes Date Note Type Note Provider Name and Address Organization Details Recorded Time 10/15/2023 text/html No changes in he alth since his last visit. No concerns. PV: 72 yo male with h/o verrucous carcinoma. Had surgery in [facility] with Dr. Pollard. Removed teeth, did a marginal mandibulectomy and did a local flap 11/2021. Doingwell, denies dysphagia, sore throat or otalgia. Does get some cough, no heartburn. ADARSH MELENDEZ MD [address] [place] [address], [phone], [place] - [facility] 10/16/2023 11:14:09 11/12/2023 text/html About 2 weeks ag o, he noticed a nodule inferior to his earlobe. This was in place for 1 to 2 weeks. It is since resolved. He was having some tenderness to palpation in this region. PV: 72 yo male with h/o verrucous carcinoma. Had surgery in [facility] with Dr. Pollard. Removed teeth, did a marginal mandibulectomy and did a local flap 11/2021. Doingwell, denies dysphagia, sore throat or otalgia. Does get some cough, no heartburn. ADARSH MELENDEZ MD [address] [place] [address],[address], [phone], [place] - [facility] 11/12/2023 13:22:17
--- OUTSIDE RECORDS SUMMARY | 2024-04-21 18:44 | XMS_ITS ---
Author Organization Rahul Patel MD Address [address] [place] [phone] Care Team Providers Care Public Safety Teacher Name Role Phone Rahul Patel Primary Care Provider [phone] Allergies No Known Allergies Results Component Value Reference Range Notes Occult Blood, Stool, Guaiac Reviewed date:12/30/2023 12:51:21 PM Interpretation:Negative Performing Lab: Notes/Report: Negative Occult Blood, Stool, Guaiac Neg REASON FOR VISIT annual visit Medications Medication SIG (Take, Route, Frequency, Duration) Notes Start Date End Date Status Tamsulosin HCl 0.4 MG TAKE 1 CAPSULE BY MOUTH ONCE DAILY for 90 Active Atorvastatin Calcium 40 MG TAKE 1 TABLET BY MOUTH ONCE DAILY Active glyBURIDE 5 MG TAKE 1 TABLET BY PERNELL TH IN THE MORNING AND 0.5 TABLET IN THE EVENING Active Finasteride 5 MG TAKE 1 TABLET BY PERNELL TH ONCE DAILY Active Vitamin C 500 MG as directed Orally Not-Taking Social History Tobacco Use: Social History Observation Description Date Details (start date - stop date) Never Smoker NA - NA Tobacco Use/Smoking Question Answer Notes Patient is a nonsmoker Additional Findings: Tobacco Non-User Cu rrent non-smoker, currently using no form of tobacco Alcohol Screen Question Answer Notes Did you have a drink containing alcohol in the p ast year? 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 Vital Signs Blood pressure systolic 144 mm Hg 12/30/19 Blood pressure diastolic 70 mm Hg 024 Height 70.5 in 12/30/2023 Weight 170 lbs 12/30/2023 BMI 24.05 kg/m2 12/30/2023 weight is down 5 pounds [facility] e 06-27-23 Encounters Encounter Location Date Provider Diagnosis Rahul Patel MD [address] [place] [address] Drive [address] [place] [phone] 12/30/2023 Rahul Patel Labile hypertension I10 ; Annual physical exam Z00.00 ; Pure hypercholesterolemia E78.00 ; Type 2 diabetes mellitus without complications E11.9 ; Calculus of parotid gland K11.5 ; Colon cancer screening Z12.11 and Depression screening Z13.31 Assessments Encounter Date Diagnosis (ICD Code) Assessment Notes Treatment Notes Treatment Clinical Notes Section Notes 12/30/2023 Labile hypertension (ICD-10 - I10) will observe 12/30/2023 Annual physical exam (ICD-10 - Z00.00) labs reviewed and discussed with patient 12/30/2023 Pure hypercholesterolemia (ICD-10 - E78.00) will continue with present meds 12/30/2023 Type 2 diabetes gonzalo itus without complications (ICD-10 - E11.9) good aic will continue current regiment 12/30/2023 Calculus of parotid gland (ICD-10 - K11.5) resolved at present. will go back to ent/ patient has an appt in Feb. 12/30/2023 Colon cancer screeni ng (ICD-10 - Z12.11) GUAIAC NEGATIVE 12/30/2023 Depression screening (ICD-10 - Z13.31) NEGATIVE SCREEN Plan Of Treatment Medication Medication Name Sig Start Date Stop Date Notes Atorvastatin Calcium 40 MG TAKE 1 TABLET BY MOUTH ONCE DAILY glyBURIDE 5 MG TAKE 1 TABLET BY PERNELL TH IN THE MORNING AND 0.5 TABLET IN THE EVENING Finasteride 5 MG TAKE 1 TABLET BY PERNELL TH ONCE DAILY Treatment Notes Assessment Notes Labile hypertension will observe Annual physical exam labs reviewed and d iscussed with patient Pure hypercholesterolemia will continue with present meds Type 2 diabetes mellitus without complic ations good aic will continue current regiment Calculus of parotid gland resolved at pr esent. will go back to ent/ patient has an appt in Feb. Colon cancer screening GUAIAC NEGATIVE Depression screening NEGATIVE SCREEN Next Appt Details Follow Up: 6 Months, Reason: Provider Name:Rahul romero, 06/26/2024 07:45:00 AM, [address] [place] [address], [address], [place], [place], [phone], Provider Name:Rahul romero, 06/29/2024 09:00:00 AM, [address] [place] [address], [address], [place], [place], [phone], Provider Name:Rahul romero, 12/25/2024 07:30:00 AM, [address] [place] [address], Suite [facility], [place], [place], [phone], Provider Name:Rahul romero, 01/01/2025 08:30:00 AM, [address] [place] [address], Suite [facility], [place], [place], [phone], Progress Notes * KAREN, ROSALESDOB:1950 (73 yo M)Acc No.[id number]:12/30/2023 Progress Notes Patient:?ROSALES JONES Provider:?Rahul Patel MD :1950???Age:73 Y???Sex:Male Blade e:12/30/2023 Address:[address] [place], [place] [id number] Subjective: * Chief Complaints: * ???Annual visit * HPI: ???Depression Screening:?PHQ-9?Little interest or pleasure in doing things?Not at all,?Feeling down, depressed, or hopeless?Not at all,?Trouble falling or staying asleep, or sleeping too much?Not at all,?Feeling tired or having little energy?Not at all,?Poor appetite or overeating?Not at all,?Feeling bad about yourself or that you are a failure, or have let yourself or your family down?Not at all,?Trouble concentrating on things, such as reading the newspaper or watching television?Not at all,?Moving or speaking so slowly that other people could have noticed; or the opposite, being so fidgety or restless that you have been moving around a lot more than usual?Not at all,?Thoughts that you would be better off or of hurting yourself in some way?Not at all,?Total Score?0.?Interpretation and Intervention?Depression Screening Findings?Negative,?Follow-Up for Depression?: review of PHQ-9 found negative result, no follow-up needed.?Communication Needs:?Communication Needs?Does the patient have a hearing impairment?No,?Does the patient have a vision impairment??Yes,?If yes, what is the vision impairment??Glasses,?Does the patient have a cognition impairment??No.?Fall Risk:?History?Have you had any falls with injury in the past year??No,?Have you had two or more falls in the past year??No.?SDOH Questions:?SDOH Questions?In the past year have you been worried about losing housing??No,?In the past year have you or any family members you live with been unable to get any of the following when it was really needed? Check all that apply:?None.?Symptom(s):? patient is a 73 yo male here for annual visit with review of recent labs and follow up of chronic issues. * ROS:?General/Constitutional:?Patient denies?fatigue, headache.?Change in appetite?denies.?Chills?denies.?Fever?denies.?Ophthalmologic:?Blurred vision?denies.?Discharge?denies.?Pain?denies.?ENT:?Patient denies?decreased sense of smell, any loss of taste, sore throat.?Decreased hearing?denies.?Sore throat?denies.?Swollen glands?denies.?Endocrine:?Cold intolerance?denies.?Excessive thirst?denies.?Heat intolerance?denies.?Weight loss?denies.?Respiratory:?Cough?denies.?Shortness of breath at rest?denies.?Shortness of breath with exertion?denies.?Wheezing?denies.?Cardiovascular:?Chest pain at rest?denies.?Chest pain with exertion?denies.?Irregular heartbeat?denies.?Shortness of breath?denies.?Gastrointestinal:?Abdominal pain?denies.?Change in bowel habits?denies.?Diarrhea?denies.?Nausea?denies.?Rectal bleeding?denies.?Vomiting?denies .?Genitourinary:?Blood in urine?denies.?Difficulty urinating?denies.?Frequent urination?denies.?Musculoskeletal:?Patient denies?muscle aches.?Painful joints?denies.?Weakness?denies.?Peripheral Vascular:?Patient denies?red and blue toes.?Skin:?Dry skin?denies.?Itching?denies.?Denies?Mole(s),? changes in moles, new moles or any lesions of concern.?Denies?Photosensitivity.?Rash?denies.?Neurologic:?Dizziness?denies.?Fainting?denies.?Headache?denies.? * Medical History:? * Surgical History:? * Hospitalization/Major Diagno stic Procedure:? * Family History:?Father: dece ased 85 yrs, ? [place].?Mother: 87 yrs, diagnosed with CHF.?3 brother(s) . 1 son(s) . .? Denies mental health/substance abuse family history Father- [place] Mother- Resp Failure, Denies mental health/substance abuse family history, No pertinent family medical history, Denies mental health/substance abuse family history. * Social History:?Tobacco Use:?Tobacco Use/Smoking?Patient is a?nonsmoker,?Additional Findings: Tobacco Non-User?Current non-smoker, currently using no form of tobacco.?Drugs/Alcohol:?Alcohol Screen?Did you have a drink containing alcohol in the past year??No,?Points?0,?Interpretation?Negative.?Miscellaneous:?Caffeine: yes, frequency:, 2-3 cups per day , 2-3 cups of tea. Children: yes. Community involvements: yes, belongs to [employer] group. Exercise: yes, walks 2-3 times a week for half a mile. Housing: owning. Living with: spouse. Marital status: . Occupation: works part-time. Pets: fishes. no Travel outside of the [place], none. * Medications:?TakingFinasteri de 5 MG Tablet TAKE 1 TABLET BY MOUTH ONCE DAILY Tamsulosin HCl 0.4 MG Capsule TAKE 1 CAPSULE BY MOUTH ONCE DAILY Atorvastatin Calcium 40 MG Tablet TAKE 1 TABLET BY MOUTH ONCE DAILY glyBURIDE 5 MG Tablet TAKE 1 TABLET BY MOUTH IN THE MORNING AND 0.5 TABLET IN THE EVENING Taking Finasteride 5 MG Tablet TAKE 1 TABLET BY MOUTH ONCE DAILY Taking Tamsulosin HCl 0.4 MG Capsule TAKE 1 CAPSULE BY MOUTH ONCE DAILY Taking Atorvastatin Calcium 40 MG Tablet TAKE 1 TABLET BY MOUTH ONCE DAILY Taking glyBURIDE 5 MG Tablet TAKE 1 TABLET BY MOUTH IN THE MORNING AND 0.5 TABLET IN THE EVENING Not-Taking/PRNVitamin C 500 MG Capsule as directed Orally Medication List reviewed and reconciled with the patientNot-Taking/PRN Vitamin C 500 MG Capsule as directed Orally Medication List reviewed and reconciled with the patient * Allergies:?N.K.D.A.yes[Aller gies Verified] Objective: * Vitals:?Ht: 70.5, Wt:170, BM I:24.05, BP:144/70, Repeat BP:150/80 weight is down 5 pounds since 06-27-23. * ???Past Orders: ???Lab:Complete Blood Count Auto Diff (Order Date - 12/23/2023) (Collection Date - 12/24/2023) ? Value Reference Range ?White Blood Count 5.4 4. 8-10.8 - X10*3/uL ?Red Blood Count 4.46 L 4.60 -5.80 - X10*6/uL ?Hemoglobin 13.8 L 14.0-18.0 - g/dl ?Hematocrit 40.8 L 42.0-52.0 - % ?Mean Corpuscular Volume 91.5 80.0-98.0 - fL ?Mean Corpuscular Hemoglobin 30.9 27.0-33.0 - pg ?Mean Corpuscular HGB Conc 33.8 31.0-36.0 - g/dl ?Red Cell Distribution Width 12.5 11.0-16.0 - % ?Platelet Count 196 160-4 00 - X10*3/uL ?Mean Platelet Volume 10.1 9.4-12.4 - fL ?Neutrophils Percent Auto 62.6 45-73 - % ?Imm Gran Pct Auto 0.2 0. 0-0.4 - % ?Lymphocytes Percent Auto 25.6 20-40 - % ?Monocytes Percent Auto 9.1 2-11 - % ?Eosinophils Percent Auto 1.9 0-4 - % ?Basophils Percent Auto 0.6 0-2 - % ?NRBC Pct Auto 0.0 0.0-0. 2 - /100WBC ?Neutrophils Absolute Auto 3.4 2.0-8.3 - x10*3/uL ?Imm Gran Abs Auto 0.01 0. 00-0.03 - X10*3/uL ?Lymphocytes Absolute Auto 1.4 1.2-4.9 - X10*3/uL ?Monocytes Absolute Auto 0.5 0.1-1.2 - X10*3/uL ?Eosinophils Absolute Auto 0.1 0.0-0.4 - X10*3/uL ?Basophils Absolute Auto 0.0 0.0-0.2 - X10*3/uL ?NRBC Abs Auto 0.000 0.0-0. 012 - X10*3/uL ???Lab:Comprehensive Keller. P jessica Fast (Order Date - 12/23/2023) (Collection Date - 12/24/2023) ? Value Reference Range ?Sodium 140 135-145 - mmo l/L ?Bilirubin Total 0.6 0.0- 1.0 - mg/dL ?Aspartate Amino Transferase 29 5-37 - U/L ?Alanine Aminotransferase 26 0-40 - U/L ?Total Protein 6.4 L 6.5-8. 0 - g/dL ?Albumin Level 4.1 3.5-5. 0 - g/dL ?Alkaline Phosphatase 65 39-117 - U/L ?Potassium 4.7 3.3-5.1 - mmol/L ?Chloride 104 96-108 - mm ol/L ?Carbon Dioxide 31 H 22-29 - mmol/L ?Anion Gap 10 L 12-20 - ?Blood Urea Nitrogen 19 H 9-16 - mg/dL ?Creatinine 0.99 0.5-1.4 - mg/dL ?Estimated Glomerular Filt Rate > 60 - ?Glucose Fasting 147 H 60-9 9 - mg/dL ?Calcium 9.6 8.4-10.2 - m g/dL ???Lab:Lipid Panel (Order Da te - 12/23/2023) (Collection Date - 12/24/2023) ? Value Reference Range ?Triglycerides 68 <150 - mg/dL ?Cholesterol 132 <200 - m g/dL ?LDL Cholesterol Calculated 74 <100 - mg/dL ?HDL Cholesterol 45 >40 - mg/dL ???Lab:PSA,Total (Free>4and< 10) (Order Date - 12/23/2023) (Collection Date - 12/24/2023) ? Value Reference Range ?PSA,Total (Free>4and<10) 4.90 H 0.00-4.00 - ng/mL ???Lab:Microalbumin, Random (Order Date - 12/23/2023) (Collection Date - 12/24/2023) ? Value Reference Range ?Creatinine Urine 71.26 - m g/dL ?Microalbumin Urine < 5.0 - mg/L ?Microalbum Creatinine Ratio Ur TNP <30 - ug/mg cr ???Lab:Hemoglobin A1c (Order Date - 12/23/2023) (Collection Date - 12/24/2023) ? Value Reference Range ?Hemoglobin A1c % 6.4 H <6. 0 - % ?Estimated Average Glucose 137 - mg/dL * Examination: ???General Examination: ?GENERAL APPEARANCE:?well developed, well nourished, in no acute distress.?HEAD:?normocephalic, atraumatic.?EYES:?pupils equal, round, reactive to light and accommodation, sclera non-icteric.?EARS:?normal.?ORAL CAVITY:?mucosa moist.?THROAT:?clear.?NECK/THYROID:?neck supple, full range of motion, no cervical lymphadenopathy, no bruits.?SKIN:?warm and dry, no suspicious lesions.?HEART:?regular rate and rhythm, S1, S2 normal, no murmurs.?LUNGS:?clear to auscultation bilaterally.?ABDOMEN:?soft, nontender, nondistended, bowel sounds present, normal, no organomegaly , no masses palpable.?RECTAL EXAM:?normal tone, no external hemorrhoids, no masses palpable, prostate normal, stool guaiac negative.?MALE GENITOURINARY:?circumcised , no penile lesions or discharge , no testicular mass , testes descended bilaterally.?EXTREMITIES:?no clubbing, cyanosis, or edema.?NEUROLOGIC:?nonfocal, motor strength normal upper and lower extremities, sensory exam intact.? 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 Plan: * Treatment: 2.?Labile hypertension? Notes: will observe?? 3.?Pure hypercholesterolemia ? Continue Finasteride Tablet, 5 MG, TAKE 1 TABLET BY MOUTH ONCE DAILY;?Continue Atorvastatin Calcium Tablet, 40 MG, TAKE 1 TABLET BY MOUTH ONCE DAILY.?? Notes: will continue with present meds?? 4.?Type 2 diabetes mellitus without complications? Continue glyBURIDE Tablet, 5 MG, TAKE 1 TABLET BY MOUTH IN THE MORNING AND 0.5 TABLET IN THE EVENING.?? Notes: good aic will continue current regiment?? 5.?Calculus of parotid gland ? Notes: resolved at present. will go back to ent/ patient has an appt in Feb.?? 6.?Colon cancer screening?LAB: Occult Blood, Stool, Guaiac?Negative ? Value Reference Range ?Occult Blood, Stool, Guaiac Neg Notes: GUAIAC NEGATIVE??7.?Depression screening? Notes: NEGATIVE SCREEN?? * Procedure Codes:?08054 TEST FOR BLOOD, FECES * Follow Up:?6 Months * * Sign off status: Completed true * Provider:?Rahul Patel MD Date:?1 Generated for Angie joseph/Denzel/Zariaransmitting on:?04/21/2024 06:44 PM EST History and Physical Notes * HPI (History of Present Illness) Category Sub-Category Detail Notes Category Not es Symptom(s) patient is a 73 yo male here for annual visit with review of recent labs and follow up of chronic issues. Depression Screening PHQ-9 Little inte rest or pleasure in doing things: Not at all Feeling down, depressed, or hopeless: No t at all Trouble falling or staying asleep, or sl eeping too much: Not at all Feeling tired or having little energy: N ot at all Poor appetite or overeating: Not at all Feeling bad about yourself o r that you are a failure, or have let yourself or your family down: Not at all Trouble concentrating on thi ngs, such as reading the newspaper or watching television: Not at all Moving or speaking so slowly that other people could have noticed; or the opposite, being so fidgety or restless that you have been moving around a lot more than usual: Not at all Thoughts that you would be b katarzyna off or of hurting yourself in some way: Not at all Total Score: 0 Interpretation and Intervention Depression Claudia cuevas Findings: Negative Follow-Up for Depression: : review of PH Q-9 found negative result, no follow-up needed SDOH Questions SDOH Questions In the past year have you been worried about losing housing?: No In the past year have you or any family members you live with been unable to get any of the following when it was really needed? Check all that apply:: None Fall Risk History Have you had any falls with injury i n the past year?: No Have you had two or more falls in the st year?: No Communication Needs Communication Needs Does the patient have a hearing impairment: No Does the patient have a vision impairmen t?: Yes ?If yes, what is the vision impairment?: Glasses Does the patient have a cognition impair ment?: No Examination Category Sub-Category Detail Notes Category Not es General Examination GENERAL APPEARANCE: well dev eloped, well nourished, in no acute distress HEAD: normocephalic, atrau matic EYES: pupils equal, round, reactive to light and accommodation, sclera non- icteric EARS: normal THROAT: clear NECK/THYROID: neck supple, full ra nge of motion, no cervical lymphadenopathy, no bruits HEART: regular rate and rhy thm, S1, S2 normal, no murmurs LUNGS: clear to auscultatio n bilaterally ABDOMEN: soft, nontender, non distended, bowel sounds present, normal, no organomegaly , no masses palpable NEUROLOGIC: nonfocal, motor stre ngth normal upper and lower extremities, sensory exam intact SKIN: warm and dry, no charlene picious lesions EXTREMITIES: no clubbing, cyanosi s, or edema MALE GENITOURINARY: circumcised , no pen ile lesions or discharge , no testicular mass , testes descended bilaterally RECTAL EXAM: normal tone, no exte rnal hemorrhoids, no masses palpable, prostate normal, stool guaiac negative ORAL CAVITY: mucosa moist
--- OUTSIDE RECORDS SUMMARY | 2024-04-21 18:44 | XMS_ITS | Encounter Summary ---
Author Organization [facility] Address [address] [place] [address] Care Team Providers Care Diet Tech Name Role Phone Rahul Patel Primary Care Provider [phone] Encounter Details Date Type Department Care Team (Late st Contact Info) Description 10/02/2021 Lab Requisition [facility] [address] [place] [id number] Kev Pollard MD [address] [place] [id number] Social History Tobacco Use Types Packs/Day Years Used Date Smoking Tobacco: Never Smokeless Tobacco: Never Sex and Gender Information Value Date Recorded Sex Assigned at Male 10/15/2021 4:11 PM EDT Legal Sex Male 1:18 PM EDT Gender Identity Male 10/15/2021 4:11 PM EDT Sexual Orientation Straight 10/15/2021 4: 11 PM EDT documented as of this encounter Plan of Treatment Not on file documented as of this encounter Procedures * Due to [place] [employer] law, this organization might not be sharing negative HIV tests. Procedure Name Priority Date/Time Associated Diagnosis Comments TISSUE EXAM Routine 10/02/2021 12:34 PM EDT documented in this encounter Results * Due to [place] [employer] law, this organization might not be sharing negative HIV tests. 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 [employer] MANUAL 10/03/2021 3:14 PM EDT [facility] Clinical History NA [employer] MAN[employer] 10/03/2021 3:14 PM EDT [facility] Gross Consult Client Facility: [facility] Slide Identificatio n: [id number] Number of Glass Slides Received: 1 Number of Blocks Received: 0 Client Pathologist: Reyes Schilling Accompanying Report Received: yes [employer] MANUAL 10/03/2021 3:14 PM EDT [facility] Gross Description User Grossing complete by Silvana Graham on 10/02/2021 12:36 PM [employer] MANUAL 10/03/2021 3:14 PM EDT [facility] Embedded Images [employer] MANUAL 10/03/2021 3:14 PM EDT [facility] Resulting Agency Case was signed out at [facility], Department of Pathology, [facility] 3 CLIA [id number] [employer] MANUAL 10/03/2021 3:14 PM EDT [facility] Abnormal Yes(A) (none) [employer] MANUAL 10/03/2021 3:14 PM EDT [facility] Tissue Oral cavity structure / Unknown 10/02/2021 12:34 PM EDT 10/02/2021 12:35 PM EDT us Kev Pollard MD LAB PATHOLOGY/CYTOLOGY ORDER RAFAEL Final Result [facility] [address] [place] [address], documented in this encounter Visit Diagnoses Not on filedocumented in this encounter Care Teams Diet Tech Relationship Specialty Start Date End Date JorgeTraceen [address] [place] [address] [place] [address] PCP - General Internal Medicine 09/22/21 documented as of this encounter
--- OUTSIDE RECORDS SUMMARY | 2024-04-21 18:44 | XMS_ITS | Referral Summary ---
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 Care Teams Patient Access Representative Relationship Specialty Start Date End Date Rahul Patel [address] [place] [address] [place] [address] PCP - General Internal Medicine 09/22/21
--- OUTSIDE RECORDS SUMMARY | 2024-04-21 18:44 | XMS_ITS ---
Author Organization Rahul Patel MD Address [address] [facility] [address] [place] [phone] Care Team Providers Care Care Program Director Name Role Phone Rahul Patel Primary Care Provider REASON FOR VISIT RE:Lab slip Encounters Encounter Location Date Provider Diagnosis Rahul Patel MD [address] [place] [address] [place] [phone] 12/13/2023 Rahul Patel Plan Of Treatment Next Appt Details Provider Name:Rahul romero, 06/26/2024 07:45:00 AM, [address] [place] [address], [address], [phone], Provider Name:Rahul romero, 06/29/2024 09:00:00 AM, [address] [place] [address], [address], [phone], Provider Name:Rahul romero, 12/25/2024 07:30:00 AM, [address] [place] [address], [address], [phone], Provider Name:Rahul romero, 01/01/2025 08:30:00 AM, [address] [place] [address], [phone], Progress Notes * ROSALES JONESDOB:1950 (73 yo M)Acc No.[id number]:12/13/2023 Patient:?ROSALES JONES :1950???Age:73 Y???Sex:Male Address:[address] [place] [address] [place] JESS[place]A [place]ON, [id number] * true * Date:? Generated for Surjiti jake/Denzel/eTransmitting on:?04/21/2024 06:44 PM EST
--- OUTSIDE RECORDS SUMMARY | 2024-04-21 18:44 | XMS_ITS | Encounter Summary ---
Author Organization [facility] Address [address] [place] [address] Care Team Providers Care Incinerator Plant Supervisor Name Role Phone Rahul Patel Primary Care Provider [phone] Encounter Details Date Type Department Care Team (Late st Contact Info) Description 09/28/2021 Orders Only [facility] XRay [address] [place] [address] Kyle Sierra MD [address] [place] [address] Social History Tobacco Use Types Packs/Day Years [...] on file documented as of this encounter Visit Diagnoses Not on filedocumented in this encounter Care Teams Incinerator Plant Supervisor Relationship Specialty Start Date End Date Rahul Patel [address] [place] [address] [place] [address] PCP - General Internal Medicine 09/22/21 documented as of this encounter
--- OUTSIDE RECORDS SUMMARY | 2024-04-21 18:44 | XMS_ITS | Encounter Summary ---
Author Organization [facility] Address [address] [place] [address] Care Team Providers Care Receiver Setter Name Role Phone Rahul Patel Primary Care Provider [phone] Encounter Details Date Type Department Care Team (Late st Contact Info) Description 01/22/2022 myChart Message [facility] Operating Room [address] [place] [id number] Mychart, Generic Provider [address] [place], [place] [id number] Need to reschedule appointment with Dr. Pollard Social History Tobacco Use Types Packs/Day Years Used Date Smoking Tobacco: Never Smokeless Tobacco: Never Alcohol Use Standard Drinks/Week Comments Never 0 [...] on filedocumented in this encounter Care Teams Receiver Setter Relationship Specialty Start Date End Date Rahul Patel [address] [place] [address] [place] [address] PCP - General Internal Medicine 09/22/21 documented as of this encounter
--- OUTSIDE RECORDS SUMMARY | 2024-04-21 18:45 | XMS_ITS ---
Author Organization Rahul Patel MD Address [address] [place], [place] [id number] Care Team Providers Care Photonics Engineer Name Role Phone Rahul Patel Primary Care Provider [phone] Results Component Value Reference Range Notes Complete Blood Count Auto Di ff Reviewed date:12/24/2023 11:37:54 AM Interpretation: Performing Lab:[facility], [address] [place] [phone] Notes/Report: White Blood Count 5.4 4.8-10.8 X10*3/uL Red Blood Count 4.46 4.60-5.80 X10*6/uL Hemoglobin 13.8 14.0-18.0 g/dl Hematocrit 40.8 42.0-52.0 % Mean Corpuscular Volume 91.5 80.0-98.0 fL Mean Corpuscular Hemoglobin 30.9 27.0-33.0 pg Mean Corpuscular HGB Conc 33.8 31.0-36.0 g/dl Red Cell Distribution Width 12.5 11.0-16.0 % Platelet Count 196 160-400 X10*3/uL Mean Platelet Volume 10.1 9.4-12.4 fL Neutrophils Percent Auto 62.6 45-73 % Imm Gran Pct Auto 0.2 0.0-0.4 % Lymphocytes Percent Auto 25.6 20-40 % Monocytes Percent Auto 9.1 2-11 % Eosinophils Percent Auto 1.9 0-4 % Basophils Percent Auto 0.6 0-2 % NRBC Pct Auto 0.0 0.0-0.2 /100WBC Neutrophils Absolute Auto 3.4 2.0-8.3 x10*3/u L Imm Gran Abs Auto 0.01 0.00-0.03 X10*3/uL Lymphocytes Absolute Auto 1.4 1.2-4.9 X10*3/u L Monocytes Absolute Auto 0.5 0.1-1.2 X10*3/uL Eosinophils Absolute Auto 0.1 0.0-0.4 X10*3/u L Basophils Absolute Auto 0.0 0.0-0.2 X10*3/uL NRBC Abs Auto 0.000 0.0-0.012 X10*3/uL Comprehensive [place]. Panel Fa st Reviewed date:12/24/2023 11:38:31 AM Interpretation: Performing Lab:[facility], [address] [place] [phone] Notes/Report: Sodium 140 135-145 mmol/L Potassium 4.7 3.3-5.1 mmol/L Chloride 104 96-108 mmol/L Carbon Dioxide 31 22-29 mmol/L Anion Gap 10 12-20 Blood Urea Nitrogen 19 9-16 mg/dL Creatinine 0.99 0.5-1.4 mg/dL Estimated Glomerular Filt Rate > 60 NOTE: For -Russian individuals, multiply the result by 1.210. Chronic Kidney Disease: Estimated GFR < 60 mL/min/1.73m2 Severe Kidney Disease: Estimated GFR < 15 mL/min/1.73m2 Glucose Fasting 147 60-99 mg/dL A fasting glucose of 126 mg/dl or greater on more than one occasion is considered diagnostic of diabetes. Calcium 9.6 8.4-10.2 mg/dL Bilirubin Total 0.6 0.0-1.0 mg/dL Aspartate Amino Transferase 29 5-37 U/L Alanine Aminotransferase 26 0-40 U/L Total Protein 6.4 6.5-8.0 g/dL Albumin Level 4.1 3.5-5.0 g/dL Alkaline Phosphatase 65 39-117 U/L Lipid Panel Reviewed date:12/24/2023 11:37:35 AM Interpretation: Performing Lab:[facility], [address] [place] [phone] Notes/Report: Triglycerides 68 <150 mg/dL Desirable Triglyceride: less than 150 mg/dL Borderline High Triglyceride 150-199 mg/dL High Triglyceride: 200-499 mg/dL Very High Triglyceride: greater than or equal to 5OO mg/dL Cholesterol 132 <200 mg/dL Desirable Cholesterol: less than 200 mg/dL Borderline High Cholesterol: 200-239 mg/dL High Cholesterol: greater than 239 mg/dL LDL Cholesterol Calculated 74 <100 mg/dL Desirable LDL: less than 100 mg/dL Near Optimal/Above Optimal LDL: 110-129 mg/dL Borderline High LDL: 130-159 mg/dL High LDL: 160-189 mg/dL Very High LDL: greater than or equal to 190 mg/dL HDL Cholesterol 45 >40 mg/dL Desirable HDL: greater than 40 mg/dL Note: This HDL assay may give artificially low results in patients with liver disease. PSA,Total (Free>4and<10) Reviewed date:12/24/2023 11:29:03 AM Interpretation: Performing Lab:[facility], [address] [place] [phone] Notes/Report: PSA,Total (Free>4and<10) 4.90 0.00-4.00 ng/mL PSA methodology: Garvin Alinity i Chemiluminescent Microparticle Immunoassay (CMIA) Microalbumin, Random Reviewed date:12/24/2023 11:31:45 AM Interpretation: Performing Lab:[facility], [address] [place] [phone] Notes/Report: Creatinine Urine 71.26 Microalbumin Urine < 5.0 Microalbum/Creatinine Ratio Ur TNP <30 ug/mg cr Unable to calculate albumin/creatinine ratio due to low microalbumin or creatinine result. Hemoglobin A1c Reviewed date:12/24/2023 11:29:15 AM Interpretation: Performing Lab:[facility], [address] [place] [phone] Notes/Report: Hemoglobin A1c % 6.4 <6.0 % Hemoglobin A1C Reference Range Adults: 4.8 - 6.0 % Non diabetic: < 6.0 % Goal: < 7.0 % Additional Action Suggested: > 8.0 % Note: Hemoglobin A1c results are invalid for patients with abnormal amounts of HbF. Blood transfusions may impact the HbA1c concentration in the patient sample. Estimated Average Glucose 137 eAG = Estimated average glucose which is %A1C expressed as average glucose, using the formula of the T6H-Eawvfpo Average Glucose study (ADAG), Diabetes Care, Vol.31,#8, Oct. 2007 UA ClnCatch+Micro w/rflx Cul t Reviewed date:12/24/2023 08:42:19 PM Interpretation: Performing Lab:[facility], [address] [place] [phone] Notes/Report: Urine, Clean Catch Color Urine Yellow Appearance Urine Clear PH 6.0 5.0-9.0 Glucose Urine UA Negative Negative mg/dL Urine Blood Negative Negative Specific [place] - Urine 1.015 1.005-1.025 Urine Protein Negative Neg-Trace mg/dL Urine Ketones Negative Negative mg/dL Nitrite Urine Negative Negative Leukocyte Esterase Urine Negative Negative RBC Urine 0-2 0-2 /HPF WBC Urine 0-5 0-5 /HPF Squamous Epithelial Cell Urine 0-2 0-2 /HPF Bacteria Urine None Seen None Seen Hyaline Casts Urine 0-2 0-2 /LPF REASON FOR VISIT fasting yearly labs Encounters Encounter Location Date Provider Diagnosis Rahul Patel MD [address] [place] [phone] 12/23/2023 Rahul Patel Blood tests for routine general physical examination Z00.00 ; Type 2 diabetes mellitus without complications E11.9 and Labile hypertension I10 Assessments Encounter Date Diagnosis (ICD Code) Assessment Notes Treatment Notes Treatment Clinical Notes Section Notes 12/23/2023 Blood tests for routine general physical examination (ICD-10 - Z00.00) 12/23/2023 Type 2 diabetes mellitus without complications (ICD-10 - E11.9) 12/23/2023 Labile hypertension (ICD-10 - I10) Plan Of Treatment Pending Test Test Name Order Date Vitamin D 25-OH (D2 and D3) 12/23/2023 Next Appt Details Provider Name:Rahul romero, 06/26/2024 07:45:00 AM, [address] [place] [address], Suite [facility], [place], [id number], Provider Name:Rahul romero, 06/29/2024 09:00:00 AM, [address], [address], [place], [phone], Provider Name:Rahul Buck ier, 12/25/2024 07:30:00 AM, [address], [address], [place], [phone], Provider Name:Rahul Buck ier, 01/01/2025 08:30:00 AM, [address], [address], [place], [phone], Progress Notes * ROSALES JONESDOB:1950 (73 yo M)Acc No.[id number]:12/23/2023 Progress Note Patient:?ROSALES JONES Provider:?Rahul Patel MD :1950???Age:73 Y???Sex:Male Blade e:12/23/2023 Address:[address] [place], [place] [phone] Subjective: * Chief Complaints: * ???1. Fasting yearly labs. * Medical History:? Objective: * Vitals:? Assessment: * Assessment: 1.?Blood tests for routine g eneral physical examination - Z00.00 (Primary)???2.?Type 2 diabetes mellitus without complications - E11.9???3.?Labile hypertension - I10??? Plan: * Treatment: 2.?Type 2 diabetes mellitus without complications?LAB: Vitamin D 25-OH (D2 and D3) ?LAB: Complete Blood Count Auto Diff (Collection Date & Time - 12/24/2023 07:59 AM) ?LAB: Comprehensive [place]. Panel Fast (Collection Date & Time - 12/24/2023 07:59 AM) ?LAB: Lipid Panel (Collection Date & Time - 12/24/2023 07:59 AM) ?LAB: PSA,Total (Free>4and<10) (Collection Date & Time - 12/24/2023 07:59 AM) ?LAB: Microalbumin, Random (Collection Date & Time - 12/24/2023 07:45 AM) ?LAB: Hemoglobin A1c (Collection Date & Time - 12/24/2023 07:59 AM) ?LAB: UA ClnCatch+Micro w/rflx Cult (Collection Date & Time - 12/24/2023 07:45 AM) 3.?Labile hypertension?LAB: Vitamin D 25-OH (D2 and D3) ?LAB: Complete Blood Count Auto Diff (Collection Date & Time - 12/24/2023 07:59 AM) ?LAB: Comprehensive [place]. Panel Fast (Collection Date & Time - 12/24/2023 07:59 AM) ?LAB: Lipid Panel (Collection Date & Time - 12/24/2023 07:59 AM) ?LAB: PSA,Total (Free>4and<10) (Collection Date & Time - 12/24/2023 07:59 AM) ?LAB: Microalbumin, Random (Collection Date & Time - 12/24/2023 07:45 AM) ?LAB: Hemoglobin A1c (Collection Date & Time - 12/24/2023 07:59 AM) ?LAB: UA ClnCatch+Micro w/rflx Cult (Collection Date & Time - 12/24/2023 07:45 AM) * * The named appointment provid er may or may not be the originator of this progress note, and it is not deemed complete until electronically signed by the appointment provider. Sign off status: Pending * Provider:?Rahul Patel MD Date:?1 Generated for Angie joseph/Denzel/Ehsanitting on:?04/21/2024 06:44 PM EST
[2024-04-21 18:46] LABS: Alanine Aminotransferase 25 U/L (0-40); Albumin Level 3.9 g/dL (3.5-5.0); Alkaline Phosphatase 55 U/L (39-117); Anion Gap 15 (12-20); Aspartate Amino Transferase 37 U/L (5-37); Bilirubin Total 0.4 mg/dL (0.0-1.0); Blood Urea Nitrogen 20 mg/dL (9-16); Calcium 8.5 mg/dL (8.4-10.2); Carbon Dioxide 24 mmol/L (22-29); Chloride 100 mmol/L (96-108); Creatinine Clr Calc Pharmacy 84.8; Estimated Glomerular Filt Rate > 60; Glucose Random 120 mg/dL (60-115); Potassium 3.9 mmol/L (3.3-5.1); Sodium 135 mmol/L (135-145); Total Protein 6.9 g/dL (6.5-8.0)
[2024-04-21 18:51] LABS: IDNOW Serial# 58CA691E; Strep A Nucleic Acid Negative (Negative)
[2024-04-21 18:52] LABS: Basophils Percent Auto 0.1 % (0-2); Hematocrit 37.6 % (42.0-52.0); Hemoglobin 13.2 g/dl (14.0-18.0); Imm Gran Abs Auto 0.07 X10*3/uL (0.00-0.03); Imm Gran Pct Auto 0.9 % (0.0-0.4); Lymphocytes Absolute Auto 0.5 X10*3/uL (1.2-4.9); Lymphocytes Percent Auto 5.6 % (20-40); Mean Corpuscular HGB Conc 35.1 g/dl (31.0-36.0); Mean Corpuscular Hemoglobin 31.2 pg (27.0-33.0); Mean Corpuscular Volume 88.9 fL (80.0-98.0); Mean Platelet Volume 10.4 fL (9.4-12.4); Monocytes Absolute Auto 0.9 X10*3/uL (0.1-1.2); Monocytes Percent Auto 11.2 % (2-11); Neutrophils Absolute Auto 6.6 x10*3/uL (2.0-8.3); Neutrophils Percent Auto 82.2 % (45-73); Platelet Count 143 X10*3/uL (160-400); Red Blood Count 4.23 X10*6/uL (4.60-5.80); Red Cell Distribution Width 13.2 % (11.0-16.0)
[2024-04-21 18:56] VITALS: O2SAT 97
[2024-04-21 19:02] VITALS: BP 119/58; PULSE 80; RESP 16; TEMP 38.4; O2SAT 93
[2024-04-21 19:03] VITALS: TEMP 38.4
[2024-04-21 19:15] LABS: Influenza A PCR POSITIVE (Negative); Influenza B PCR NEGATIVE (Negative); Resp Syncy Virus RNA Qual PCR NEGATIVE (Negative); SARS COV2 PCR INHOUSE NEGATIVE (Negative)
[2024-04-21 19:41] VITALS: BP 127/51; PULSE 84; RESP 18; TEMP 38.4; O2SAT 96
== END 2024-04-21 19:41 | disposition home or self-care (01) ==
PROVIDERS: Physician Assistant Medical; Emergency Provider Emergency Medicine; PCP Internal Medicine
DX: J10.1 Influenza due to other identified influenza virus with other respiratory manifestations (principal); R50.9 Fever, unspecified; J02.9 Acute pharyngitis, unspecified; Z03.818 Encounter for observation for suspected exposure to other biological agents ruled out
CPT/HCPCS: 0241U; 36415; 71046; 80053; 83605; 85025; 87040; 87651; 99283; 99284

== ENCOUNTER → 2024-04-21 15:50 | Outpatient (BNV) | payer OTHER, SELFPAY | PROVIDERS: PCP Internal Medicine; Visit Provider Radiology Diagnostic Radiology | DX: R05.9 Cough, unspecified (principal); R06.09 Other forms of dyspnea | CPT/HCPCS: 71046 ==

== ENCOUNTER 2024-04-26 08:18 | Emergency (ER) | payer OTHER, SELFPAY ==
--- NOTE | ~2024-04-26 | XR_ITS ---
CLINICAL HISTORY: cough, [place] Chest radiographs, 2 views Comparison: CR/SR - XR CHEST 2V - 04/21/24 16:10 EST Findings: The cardiomediastinal silhouette is not enlarged. Pulmonary vascularity is unremarkable. No focal consolidation or effusion. No pneumothorax. IMPRESSION: No acute cardiopulmonary findings. This document has been electronically signed by: Jovi Nelson DO on 04/26/2024 09:06:42
[2024-04-26 08:25] VITALS: BP 121/65; PULSE 82; RESP 18; TEMP 36.7; O2SAT 97; BMI 24.4
--- NOTE | 2024-04-26 08:32 | ED.GENADULT ---
HPI - General Adult General Chief complaint: Upper Respiratory Symptoms Stated complaint: cough Time Seen by Provider: 04/26/24 11:58 Source: patient and family (patient's son) Mode of arrival: ambulatory Limitations: no limitations History of Present Illness ED Provider: Bozena Lino PA-C HPI narrative: Patient is a 73 year old assigned male at with a history of recent Influenza diagnosis presenting to the emergency department today with continue cough and fever. Patient states that he was diagnosed with the flu on 04/21/2024 and continues to have a cough and fevers. Patient denies any dizziness, lightheadedness, abdominal pain, nausea, vomiting, chills, blurry vision, double vision, loss of vision, chest pain, difficulty breathing, shortness of breath, back pain, night sweats, pain with urination, increased urinary frequency, increased urinary urgency, blood in his urine or stool, syncope or a near syncopal episode, recent trauma or falls, bowel incontinence, bladder incontinence, or any other complaints at this time. Onset (ago): day(s) (5) Relieving factors: none Exacerbating factors: none Associated symptoms: cough and fever/chills Treatments prior to arrival: none Related Data Allergies Allergy/AdvReac Type Severity Reaction Status Date / Time No Known Allergies Allergy Verified 04/26/24 08:29 Review of Systems Constitutional: Constitutional: Reports no additional constitutional complaints, Denies chills, Reports fever(s) and Denies night sweats Eyes: Eyes: Reports no additional eye complaints, Denies blurry vision, Denies change in vision, Denies diplopia, Denies eye discharge, Denies loss of vision and Denies eye pain ENT: Denies dizziness Cardiovascular: Cardiovascular: Reports no additional cardiovascular complaints, Denies chest pain, Denies lightheadedness, Denies Loss of Consciousness and Denies dyspnea Respiratory: Respiratory: Reports no additional respiratory complaints, Reports cough and Denies dyspnea Gastrointestinal: Gastrointestinal: Reports no additional gastrointestinal complaints, Denies abdominal pain, Denies melena, Denies hematochezia, Denies change in bowel habits and Denies change in stool character Genitourinary: Genitourinary: Reports no additional male genitourinary complaints, Denies hematuria, Denies oliguria, Denies difficulty urinating, Denies dysuria, Denies urinary frequency, Denies urinary hesitancy, Denies urinary incontinence and Denies urinary urgency Musculoskeletal: Musculoskeletal: Reports no additional musculoskeletal complaints, Denies numbness and Denies tingling Neurologic: Denies dizziness, Denies loss of vision, Denies numbness and Denies tingling Psychiatric: Psychiatric: Reports no additional psychiatric complaints Endocrine: Endocrine: Reports no additional endocrine complaints Hematologic/Lymphatic: Hematologic/Lymphatic: Reports no additional hematologic/lymphatic complaints Allergic/Immunologic: Allergic/Immunologic: Reports no additional allergic/immunologic complaints PMFSH Past Medical History Attestation statement: The following information was validated with the patient. (all information validated with the patient's son) Source: old records reviewed, obtained from family (patient's son provided additional history and confirmed the history provided by the patient) and nursing notes reviewed Social History Social History Alcohol intake: current Alcohol intake frequency: 3 or more drinks per day Alcohol type: beer and hard liquor Advance Directives: No Advance Directives Information Provided: No Physical Exam ED Vital Signs: Vital Signs - 24 hr 04/26/24 12:06 Temperature 98.1 F Pulse Rate 82 Respiratory Rate 18 Blood Pressure 121/65 Pulse Oximetry 97 Oxygen Delivery Method Room Air BMI result Body Mass Index 24.4 Const General: cooperative, no acute distress, alert and awake Nutritional Appearance: well nourished Orientation/consciousness: patient oriented x3 Limitations: no limitations HENMT Head: Yes normal to inspection and Yes atraumatic Ears: hearing grossly normal bilaterally and external ears normal General nose exam: Normal external nose present, no nasal discharge noted and no epistaxis Face and sinus: Yes normal facial exam, No abrasion and No laceration Mouth: Normal oral and palatal mucosa present, no drooling and no muffled voice Eyes General: appearance normal, both eyes and all related structures Periorbital: periorbital findings normal Eyelids: Yes eyelids normal Conjunctivae: conjunctivae normal Pupils: Equal, round and reactive pupils present EOM: EOMs intact bilaterally Neck Neck: Yes normal visual inspection, Yes full ROM and Yes no lymphadenopathy Chest Chest palpation & inspection: normal inspection of the chest Resp Effort & Inspection: normal respiratory effort and able to speak in complete sentences GI Inspection: Yes normal to inspection Neuro General: patient oriented x3, moves all extremities and CN's II-XI intact bilaterally Cranial nerves: Yes Equal, round and reactive pupils present Cognition (Neuro): normal cognition Extrem General: Yes normal to inspection, Yes full ROM and Yes capillary refill normal Psych Appearance: grossly normal Mental Status: mental status grossly normal Affect: normal affect Attitude: cooperative Thought process: Normal thought process present Thought content: Normal thought content present Insight: Good insight present (Psych) Course Course Course Narrative: RME performed by Bozena Lino PA-C. Patient is a 73 year old assigned male at presenting to the emergency department with a cough and continued shortness of breath. Patient states that last week he tested positive for the flu but he continues to have high fevers and shortness of breath. Detailed physical exam and review of systems are deferred to the software publisher. EKG, labs, imaging, and swabs ordered. Patient placed back in the waiting room pending room availability and results. Medical Decision Making Medical Decision Making [facility] Narrative: Patient is a 73 year old assigned male at with a history of recent Influenza diagnosis presenting to the emergency department today with continue cough and fever. Patient's physical exam was unremarkable. Patient's blood work was unremarkable. Patient's chest x-ray showed no acute process. I explained my physical exam findings as well as all test results to the patient and the patient's son. I answered all questions asked by the patient and the patient's son. I stressed the importance of the patient taking his medication as directed (either prescribed or as the over the counter packaging recommends). I stressed the importance of the patient following up with his primary care provider. I stressed the importance of the patient returning to the emergency department immediately if his symptoms were to worsen or if he were to develop any dizziness, shortness of breath, difficulty breathing, chest pain, blurry vision, loss of vision, nausea, vomiting, abdominal pain, fever, chills, back pain, or any other complaints. Patient verbalized agreement and understanding with this treatment plan and discharge. Differential Diagnosis Differential Diagnoses: The differential diagnosis associated with the presentation includes Influenza COVID-19 RSV PNA Viral syndrome Post viral cough Admission/Observation Consideration of admission/observation: Escalation of care including admission/observation considered Patient would have been admitted to the hospital had his work up had any findings where hospital admission was appropriate and his clinical presentation warranted hospital admission. Lab Data [facility] Lab Attestation statement: I reviewed the patient's lab results. My interpretation of these results are in the [facility] Rationale portion of this note. 02/23/25 08:43 04/26/24 08:43 Labs: Lab Results 04/26/24 Range/Units 08:43 WBC 3.1 L (4.8-10.8) X10*3/uL RBC 4.11 L (4.60-5.80) X10*6/uL Hgb 12.6 L (14.0-18.0) g/dl Hct 36.0 L (42.0-52.0) % MCV 87.6 (80.0-98.0) fL MCH 30.7 (27.0-33.0) pg MCHC 35.0 (31.0-36.0) g/dl RDW 12.9 (11.0-16.0) % Plt Count 173 (160-400) X10*3/uL MPV 9.9 (9.4-12.4) fL Absolute Nucleated RBC 0.000 (0.0-0.012) X10*3/uL Nucleated RBC % (auto) 0.0 (0.0-0.2) /100WBC Sodium 132 L (135-145) mmol/L Potassium 4.1 (3.3-5.1) mmol/L Chloride 98 (96-108) mmol/L Carbon Dioxide 24 (22-29) mmol/L Anion Gap 14 (12-20) BUN 10 (9-16) mg/dL Creatinine 0.88 (0.5-1.4) mg/dL Estim Creat Clear Calc 79.4 Estimated GFR > 60 Random Glucose 234 H (60-115) mg/dL Calcium 8.5 (8.4-10.2) mg/dL Magnesium 1.8 (1.6-2.6) mg/dL Total Bilirubin 0.5 (0.0-1.0) mg/dL AST 37 (5-37) U/L ALT 37 (0-40) U/L Alkaline Phosphatase 65 (39-117) U/L Troponin I High Sens < 2.7 (<3.5-35.0) ng/L B-Natriuretic Peptide 42 (<100) pg/mL Total Protein 6.4 L (6.5-8.0) g/dL Albumin 3.6 (3.5-5.0) g/dL Beta-Hydroxybutyrate 0.10 (0.02-0.27) mmol/L Influenza Type A (PCR) NEGATIVE (Negative) Influenza Type B (PCR) NEGATIVE (Negative) RSV RNA Qual (PCR) NEGATIVE (Negative) SARS-CoV-2 RNA (RT-PCR) NEGATIVE (Negative) Independent Interpretation I performed an independent interpretation of an: Plain X-Ray Interpretation: My interpretation is in agreement with the radiologist's impression of this imaging study. CLINICAL HISTORY: cough, [place] Chest radiographs, 2 views Comparison: CR/SR - XR CHEST 2V - 04/21/24 16:10 EST Findings: The cardiomediastinal silhouette is not enlarged. Pulmonary vascularity is unremarkable. No focal consolidation or effusion. No pneumothorax. IMPRESSION: No acute cardiopulmonary findings. This document has been electronically signed by: Jovi Nelson DO on 04/26/2024 09:06:42 Dictated By: Jovi Nelson MD Signed By: Electronically signed by Jovi Nelson MD 04/26/24 0907 Radiology Impression Discussion of test interpretation with radiology: I have reviewed the radiologist's reading. Independent Historian Clinical information obtained from an independent historian. History obtained from or confirmed by: Other (patient's son provided additional history and confirmed the history provided by the patient.) Discharge Plan Discharge Clinical Impression: Cough, Post viral syndrome Patient Disposition: Home, Self-Care Instructions: Acute Cough (ED) Additional Instructions: Follow up with your primary care provider. Return to the emergency department immediately if your symptoms worsen or if you develop any dizziness, shortness of breath, difficulty breathing, chest pain, blurry vision, loss of vision, nausea, vomiting, abdominal pain, fever, chills, back pain, or any other complaints. Referrals: Rahul Patel MD [Primary Care Provider] - Interventions: ED Discharge Assessment Last Done: 04/26/24 12:06 Discharge Date/Time: 04/26/24 12:06 Print Language: Dutch
[2024-04-26 08:49] LABS: Hemoglobin 12.6 g/dl (14.0-18.0); Mean Corpuscular Hemoglobin 30.7 pg (27.0-33.0); Mean Corpuscular Volume 87.6 fL (80.0-98.0); Mean Platelet Volume 9.9 fL (9.4-12.4); Platelet Count 173 X10*3/uL (160-400); Red Blood Count 4.11 X10*6/uL (4.60-5.80); Red Cell Distribution Width 12.9 % (11.0-16.0); White Blood Count 3.1 X10*3/uL (4.8-10.8)
[2024-04-26 09:04] LABS: Alanine Aminotransferase 37 U/L (0-40); Albumin Level 3.6 g/dL (3.5-5.0); Alkaline Phosphatase 65 U/L (39-117); Anion Gap 14 (12-20); Aspartate Amino Transferase 37 U/L (5-37); Bilirubin Total 0.5 mg/dL (0.0-1.0); Blood Urea Nitrogen 10 mg/dL (9-16); Calcium 8.5 mg/dL (8.4-10.2); Carbon Dioxide 24 mmol/L (22-29); Chloride 98 mmol/L (96-108); Creatinine Clr Calc Pharmacy 79.4; Estimated Glomerular Filt Rate > 60; Glucose Random 234 mg/dL (60-115); Magnesium 1.8 mg/dL (1.6-2.6); Potassium 4.1 mmol/L (3.3-5.1); Sodium 132 mmol/L (135-145); Total Protein 6.4 g/dL (6.5-8.0)
[2024-04-26 09:13] LABS: Troponin-I High Sensitivity < 2.7 ng/L (<3.5-35.0)
[2024-04-26 09:26] LABS: Influenza A PCR NEGATIVE (Negative); Influenza B PCR NEGATIVE (Negative); Resp Syncy Virus RNA Qual PCR NEGATIVE (Negative); SARS COV2 PCR INHOUSE NEGATIVE (Negative)
[2024-04-26 10:11] LABS: B Type Natriuretic Peptide 42 pg/mL (<100)
[2024-04-26 12:06] VITALS: BP 121/65; PULSE 82; RESP 18; TEMP 36.7; O2SAT 97
== END 2024-04-26 12:06 | disposition home or self-care (01) ==
PROVIDERS: Physician Assistant Medical; Emergency Provider Emergency Medicine; PCP Internal Medicine
DX: G93.31 Postviral fatigue syndrome (principal); R05.9 Cough, unspecified; R50.9 Fever, unspecified; R06.02 Shortness of breath; Z03.818 Encounter for observation for suspected exposure to other biological agents ruled out; Z79.899 Other long term (current) drug therapy
CPT/HCPCS: 0241U; 36415; 71046; 80053; 82010; 83735; 83880; 84484; 85027; 99282; 99283

== ENCOUNTER → 2024-04-26 08:30 | Outpatient (BNV) | payer OTHER, SELFPAY | PROVIDERS: PCP Internal Medicine; Visit Provider Radiology Diagnostic Radiology | DX: R05.9 Cough, unspecified (principal); R06.09 Other forms of dyspnea | CPT/HCPCS: 71046 ==

== ENCOUNTER 2024-06-19 06:49 | Outpatient (REF) | payer OTHER, SELFPAY ==
--- OUTSIDE RECORDS SUMMARY | 2024-06-19 06:52 | XMS_ITS | Referral Summary ---
Author Organization [facility] Address [address] [place] [address] Care Team Providers Care School Psychology Specialist Name Role Phone Jorge Rahul Primary Care Provider [phone] Allergies Active Allergy Reactions Criticality Noted Date [...] Plan of Treatment Not on file Insurance [facility] MEDICARE Advance Directives * Full Code (Latest Code Status on File) Date Activated Date Inactivated Comments 11/03/2021 11:51 AM 11/04/2021 3:03 PM Healthcare Agents on File Name Relationship Healthcare Agent [facility] Communication Noemi Ashley Spouse Next of Kin [email or web address] Care Teams School Psychology Specialist Relationship Specialty Start Date End Date Rahul Patel [address] [place] [address] [place] [address] PCP - General Internal Medicine 09/22/21
--- OUTSIDE RECORDS SUMMARY | 2024-06-19 06:52 | XMS_ITS ---
Author Organization Rahul Patel MD Address [address] [facility] [address] [place] [phone] Care Team Providers Care Slip Cover Maker Name Role Phone Rahul Patel Primary Care Provider REASON FOR VISIT ER Encounters Encounter Location Date Provider Diagnosis Rahul Patel MD [address] [facility] [address] [place] [address] [phone] 04/27/2024 Rahul Patel Plan Of Treatment Next Appt Details Provider Name:Rahul romero, 06/29/2024 09:00:00 AM, [address] [place] [address], [address], [phone], Provider Name:Rahul romero, 12/25/2024 07:30:00 AM, [address] [place] [address], [address] [place] [address], [phone], Provider Name:Rahul romero, 01/01/2025 08:30:00 AM, [address] [place] [address], [address], [phone], Progress Notes * ROSALES JONESDOB:1950 (73 yo M)Acc No.[id number]:04/27/2024 Patient:?ROSALES JONES :1950???Age:73 Y???Sex:Male Address: [place], [address] * true * Date:? Generated for Angie joseph/Denzel/eTransmitting on:?06/19/2024 06:52 AM EDT
--- OUTSIDE RECORDS SUMMARY | 2024-06-19 06:52 | XMS_ITS | Clinical Summary ---
Author Organization [facility] Address [address] [place] [address] Care Team Providers Care Wet Cleaner Machine Name Role Phone Jorge Rahul Primary Care Provider [phone] Allergies Active Allergy Reactions Criticality Noted Date [...] DTaP,Tdap,and Td Vaccines (1 - Tdap) 1974 Alcohol/Substance Use Screening 03/04/2024 Depression Screening and Follow-Up 03/04/2024 Health Care Proxy Review 03/04/2024 Social Drivers of Health Irene ual Screening 03/04/2024 Influenza Vaccine (Season Ended) 2024 RSV Vaccine (60+ years old a nd patients) (1 - 1-dose 75+ series) 07/22/2027 Hepatitis B Vaccines Aged Out No long er eligible based on patient's age to complete this topic Insurance JESSIKA LOYOLA [id number] [facility] Member Subscriber Plan / Payer (Ef fective 2021-Present) Name:Tejinder Ramirez Relation to Subscriber:Self Name:Tejinder Ramirez Payer ID:[id number] Type:HMO Address: [facility], [address] [id number] MEDICARE Advance Directives * Full Code (Latest Code Status on File) Date Activated Date Inactivated Comments 11/03/2021 11:51 AM 11/04/2021 3:03 PM Healthcare Agents on File Name Relationship Healthcare Agent Relationshi p Communication Noemi Ramirez Spouse Next of Kin [email or web address] Modality Care Teams Wet Cleaner Machine Relationship Specialty Start Date End Date Rahul Patel [address] [place] [address] [place] [address] PCP - General Internal Medicine 09/22/21
--- OUTSIDE RECORDS SUMMARY | 2024-06-19 06:52 | XMS_ITS | Encounter Summary ---
Author Organization [facility] Address [address] [place] [address] Care Team Providers Care Cable Cutter And Swager Name Role Phone Rahul Patel Primary Care Provider [phone] Encounter Details Date Type Department Care Team (Late st Contact Info) Description 09/28/2021 Orders Only [facility] XRay [address] [place] [address] Kyle Sierra MD [address] [place] [address] Social History Tobacco Use Types Packs/Day Years [...] on filedocumented in this encounter Care Teams Cable Cutter And Swager Relationship Specialty Start Date End Date Rahul Patel [address] [place] [address] [place] [address] PCP - General Internal Medicine 09/22/21 documented as of this encounter
--- OUTSIDE RECORDS SUMMARY | 2024-06-19 06:52 | XMS_ITS | Encounter Summary ---
Author Organization [facility] [place] [facility] Address [address] [place] [address] Care Team Providers Care Technologies Division Chair Name Role Phone Rahul Patel Primary Care Provider [phone] Encounter Details Date Type Department Care Team (Late st Contact Info) Description 01/22/2022 myChart Message [facility] Operating Room [address] [place] [id number] Mychart, Generic Provider [address] [place], [place] [phone] Need to reschedule appointment with Dr. Pollard [...] on filedocumented in this encounter Care Teams Technologies Division Chair Relationship Specialty Start Date End Date Rahul Patel [address] [place] [address] [place] [address] PCP - General Internal Medicine 09/22/21 documented as of this encounter
--- OUTSIDE RECORDS SUMMARY | 2024-06-19 06:52 | XMS_ITS | Patient Health Record ---
Author Organization Rahul Patel MD Address [address] [place], [place] [address] Care Team Providers Care Brusher Hand Name Role Phone Rahul Patel Primary Care Provider Allergies No Known Allergies Results Component Value Reference Range Notes Occult Blood, Stool, Guaiac Reviewed date:12/30/2023 12:51:21 PM Interpretation:Negative Performing Lab: Notes/Report: Negative Occult Blood, Stool, Guaiac Neg PSA Free and Total Reviewed date:12/26/2023 12:45:17 PM Interpretation: Performing Lab:[facility], [address] [place] [phone] Notes/Report: Prostate Specific Ag Total 4.9 < OR = 4.0 ng/mL Percent Free Prostate Spec Ag 14 >25 % (calc) PSA(ng/mL) Free PSA(%) Estimated(x) Probability of Cancer(as%) 0-2.5 (*) Approx. 1 2.6-4.0(1) 0-27(2) 24(3) 4.1-10(4) 0-10 56 11-15 28 16-20 20 21-25 16 >or =26 8 >10(+) N/A >50 References:(1)Deven xavier et al.:Urology 60: 469-474 (2002) (2)Catalona et al.:J.Urol 168: 922-925 (2001) Free PSA(%) Sensitivity(%) Specificity(%) < or = 25 85 19 < or = 30 93 9 (3)Chandniona et al.:BHARAT 277: 4808-3510 (1996) (4)Catalona et al.:BHARAT 279: 0845-8273 (1997) (x)These estimates vary with age, ethnicity, family history and KRUPA results. (*)The diagnostic usefulness of % Free PSA has not been established in patients with total PSA below 2.6 ng/mL (+)In men with PSA above 10 ng/mL, prostate cancer risk is determined by total PSA alone. The Total PSA value from this assay system is standardized against the equimolar PSA standard. The test result will be approximately 20% higher when compared to the WHO-standardized Total PSA (Siemens assay). Comparison of serial PSA results should be interpreted with this fact in mind. PSA was performed using the Paramjit Svetlana Immunoassay method. Values obtained from different assay methods cannot be used interchangeably. PSA levels, regardless of value, should not be interpreted as absolute evidence of the presence or absence of disease. THIS TEST WAS PERFORMED AT: [email or web address] [address] [address] JACE RYO MD Free Prostate Spec Ag 0.7 Vitamin D 25-OH Total Reviewed date:12/24/2023 11:36:33 AM Interpretation: Performing Lab:[facility], [address] [place] [phone] Notes/Report: Vitamin D 25-OH Total 69.1 >30 ng/mL Health Based Reference Values* < 20 ng/mL Deficient 20-30 ng/mL Insufficient > 30 ng/mL Sufficient *Eduardo SHANE. N Engl J Med. 2007;357:266-280 Care must be taken in interpreting Vitamin D results from different laboratories and methodologies. Published data demonstrated that results from patients undergoing hemodialysis may show a negative bias when tested with various automated 25-OH vitamin D assays when compared to LC-MS/MS. When testing samples from patients whose predominant form of Vitamin D is Vitamin D2, such as patients receiving Vitamin D2 supplementation, results that are subtherapeutic should be confirmed with another method such as LC-MS/MS. Complete Blood Count Auto Di ff Reviewed date:04/23/2024 12:53:06 PM Interpretation: Performing Lab:[facility], [address] [place] [phone] Notes/Report: White Blood Count 8.0 4.8-10.8 X10*3/uL Red Blood Count 4.23 4.60-5.80 X10*6/uL Hemoglobin 13.2 14.0-18.0 g/dl Hematocrit 37.6 42.0-52.0 % Mean Corpuscular Volume 88.9 80.0-98.0 fL Mean Corpuscular Hemoglobin 31.2 27.0-33.0 pg Mean Corpuscular HGB Conc 35.1 31.0-36.0 g/dl Red Cell Distribution Width 13.2 11.0-16.0 % Platelet Count 143 160-400 X10*3/uL Mean Platelet Volume 10.4 9.4-12.4 fL Neutrophils Percent Auto 82.2 45-73 % Imm Gran Pct Auto 0.9 0.0-0.4 % Lymphocytes Percent Auto 5.6 20-40 % Monocytes Percent Auto 11.2 2-11 % Eosinophils Percent Auto 0.0 0-4 % Basophils Percent Auto 0.1 0-2 % NRBC Pct Auto 0.0 0.0-0.2 /100WBC Neutrophils Absolute Auto 6.6 2.0-8.3 x10*3/uL Imm Gran Abs Auto 0.07 0.00-0.03 X10*3/uL Lymphocytes Absolute Auto 0.5 1.2-4.9 X10*3/uL Monocytes Absolute Auto 0.9 0.1-1.2 X10*3/uL Eosinophils Absolute Auto 0.0 0.0-0.4 X10*3/uL Basophils Absolute Auto 0.0 0.0-0.2 X10*3/uL NRBC Abs Auto 0.000 0.0-0.012 X10*3/uL Comprehensive Met. Panel Reviewed date:04/23/2024 12:52:24 PM Interpretation: Performing Lab:[facility], [address] [place] [phone] Notes/Report: Sodium 135 135-145 mmol/L Potassium 3.9 3.3-5.1 mmol/L Chloride 100 96-108 mmol/L Carbon Dioxide 24 22-29 mmol/L Anion Gap 15 12-20 Blood Urea Nitrogen 20 9-16 mg/dL Creatinine 0.82 0.5-1.4 mg/dL Creatinine Clr Calc Pharmacy 84.8 eGFR (calculated from the MDRD study equation) and eCrCl (calculated from the Cockcroft-Gault equation) are based on different parameters and may not yield comparable results. If eCrCl result is absurd, please check patient's height/weight. Estimated Glomerular Filt Rate > 60 Chronic Kidney Disease: Estimated GFR < 60 mL/min/1.73m2 Severe Kidney Disease: Estimated GFR < 15 mL/min/1.73m2 Glucose Random 120 60-115 mg/dL Calcium 8.5 8.4-10.2 mg/dL Bilirubin Total 0.4 0.0-1.0 mg/dL Aspartate Amino Transferase 37 5-37 U/L Alanine Aminotransferase 25 0-40 U/L Total Protein 6.9 6.5-8.0 g/dL Albumin Level 3.9 3.5-5.0 g/dL Alkaline Phosphatase 55 39-117 U/L Lactic Acid Reviewed date:04/23/2024 12:52:31 PM Interpretation: Performing Lab:[facility], [address] [place] [phone] Notes/Report: Lactic Acid 1.0 0.5-2.0 mmol/L SARS-CoV2/FLU/RSV Reviewed date:04/23/2024 12:51:59 PM Interpretation: Performing Lab:[facility], [address] [place] [phone] Notes/Report: Influenza A PCR POSITIVE Negative Influenza B PCR NEGATIVE Negative Resp Syncy Virus RNA Qual PCR NEGATIVE Negative SARS COV2 PCR INHOUSE NEGATIVE Negative All test results must be correlated with clinical findings. Negative results do not preclude SARS-CoV2, influenza A virus, influenza B virus and/or RSV infection and should not be used as the sole basis for treatment or other patient management decisions. Negative results must be combined with clinical observations, patient history, and epidemiological information. This test has not been evaluated for monitoring treatment of infection. This test has been authorized by the FDA under an Emergency Use Authorization (EUA) for use by authorized laboratories. Testing performed on the [employer] GeneXpert utilizing real-time RT-PCR. All SARS CoV2 and positive influenza A/B results are reported to [facility]. Blood Culture (First) Reviewed date:04/27/2024 12:28:19 PM Interpretation: Performing Lab:[address] [phone] Notes/Report: Blood Culture (First) No growth after 5 days. Blood Culture (Second) Reviewed date:04/27/2024 12:28:26 PM Interpretation: Performing Lab:[address] [address] Notes/Report: Blood Culture (Second) No growth after 5 days. Strep A Nucleic Acid Reviewed date:04/23/2024 12:52:09 PM Interpretation: Performing Lab:[address] [address] Notes/Report: IDNOW Serial# [id number] Strep A Nucleic Acid Negative Negative All test results must be correlated with clinical findings. This test has not been evaluated for monitoring treatment of infection. Additional follow-up testing using the culture method is required if the result is negative and clinical symptoms persist, or in the event of an acute rheumatic fever outbreak. XR chest 2V Reviewed date:04/21/2024 04:50:04 PM Interpretation: Performing Lab: Notes/Report: [address] [address] XRay Report Signed Patient: Tejinder Ramirez MR#: [id number] 516 : 1950 Acct:[id number] Age/Sex: 73 / M ADM Date: 04/21/24 Loc: .ED Attending Dr: Ordering Physician: Generic ED Physician Date of Service: 04/21/24 Procedure(s): XR chest 2V Accession Number(s): [id number] cc: Rahul Patel MD; Generic ED Physician EXAMINATION: XR CHEST CLINICAL INFORMATION: fever congestion COMPARISON: None available. TECHNIQUE: 2 views of the chest were obtained. FINDINGS: The cardiac, hilar, and mediastinal contours are normal. The lungs are somewhat hyperaerated, however clear bilaterally. There is no pneumothorax or pleural effusion. There is no focal osseous or soft tissue abnormality. XR/XR chest 2V IMPRESSION: No active pulmonary disease. Electronically signed by: Tam Márquez MD 04/21/2024 04:31 PM EST RP Dictated By: Tam Márquez MD Signed By: <Electronically signed by Tam Márquez MD in OV> 04/21/24 163 DD/ 1550 TD/TT: 04/21/24 1607 Vp Director Of Creative Strategy: [address] [address] XRay Report Signed Patient: Aspen Ramirez rd MR#: [id number] 516 : 1950 Acct:[id number] Age/Sex: 73 / M ADM Date: 04/21/24 Loc: .ED Attending Dr: Ordering Physician: Generic ED Physician Date of Service: 04/21/24 Procedure(s): XR karie st 2V Accession Number(s): [id number] cc: Rahul Patel MD; Generic ED Physician EXAMINATION: XR CHEST CLINICAL INFORMATION: fever congestion COMPARISON: None available. TECHNIQUE: 2 views of the chest were obtained. FINDINGS: The cardiac, hilar, and mediastinal contours are normal. The lungs are somewh at hyperaerated, however clear bilaterally. There is no pneumothorax o r pleural effusion. There is no focal osseous or soft tissue abnormality. X R/XR chest 2V IMPRESSION: No active pulmonary disease. Electronically chrystal d by: Tam Márquez MD 04/21/2024 04:31 PM EST RP Dictated By: Tam Márquez MD Signed By: <Electronically signed by Tam Márquez MD in OV> 04/21/24 1631 DD/ 1550 TD/TT: 04/21/24 160 Vp Director Of Creative Strategy: Complete Blood Count no Diff Reviewed date:04/26/2024 09:38:11 AM Interpretation: Performing Lab:[facility], [address] [place] [phone] Notes/Report: White Blood Count 3.1 4.8-10.8 X10*3/uL Red Blood Count 4.11 4.60-5.80 X10*6/uL Hemoglobin 12.6 14.0-18.0 g/dl Hematocrit 36.0 42.0-52.0 % Mean Corpuscular Volume 87.6 80.0-98.0 fL Mean Corpuscular Hemoglobin 30.7 27.0-33.0 pg Mean Corpuscular HGB Conc 35.0 31.0-36.0 g/dl Red Cell Distribution Width 12.9 11.0-16.0 % Platelet Count 173 160-400 X10*3/uL Mean Platelet Volume 9.9 9.4-12.4 fL NRBC Pct Auto 0.0 0.0-0.2 /100WBC NRBC Abs Auto 0.000 0.0-0.012 X10*3/uL Comprehensive Met. Panel Reviewed date:04/26/2024 09:37:09 AM Interpretation: Performing Lab:[address] [phone] Notes/Report: Sodium 132 135-145 mmol/L Potassium 4.1 3.3-5.1 mmol/L Chloride 98 96-108 mmol/L Carbon Dioxide 24 22-29 mmol/L Anion Gap 14 12-20 Blood Urea Nitrogen 10 9-16 mg/dL Creatinine 0.88 0.5-1.4 mg/dL Creatinine Clr Calc Pharmacy 79.4 eGFR (calculated from the MDRD study equation) and eCrCl (calculated from the Cockcroft-Gault equation) are based on different parameters and may not yield comparable results. If eCrCl result is absurd, please check patient's height/weight. Estimated Glomerular Filt Rate > 60 Chronic Kidney Disease: Estimated GFR < 60 mL/min/1.73m2 Severe Kidney Disease: Estimated GFR < 15 mL/min/1.73m2 Glucose Random 234 60-115 mg/dL Calcium 8.5 8.4-10.2 mg/dL Bilirubin Total 0.5 0.0-1.0 mg/dL Aspartate Amino Transferase 37 5-37 U/L Alanine Aminotransferase 37 0-40 U/L Total Protein 6.4 6.5-8.0 g/dL Albumin Level 3.6 3.5-5.0 g/dL Alkaline Phosphatase 65 39-117 U/L Magnesium Reviewed date:04/26/2024 09:30:51 AM Interpretation: Performing Lab:[address] [place] [address] Notes/Report: Magnesium 1.8 1.6-2.6 mg/dL Troponin-I High Sensitivity Reviewed date:04/26/2024 09:31:10 AM Interpretation: Performing Lab:[address] [address] Notes/Report: Troponin-I High Sensitivity < 2.7 <3.5-35.0 ng/L The Garvin high sensitivity Troponin-I results should be used in conjunction with other diagnostic information such as ECG, clinical observations and information, and patient symptoms to aid in the diagnosis of [place]. B Type Natriuretic Peptide Reviewed date:04/27/2024 12:27:21 PM Interpretation: Performing Lab:[address] [phone] Notes/Report: B Type Natriuretic Peptide 42 <100 pg/mL For those patients who are being treated with Natrecor (nesiritide, recombinant BNP), BNP testing should be performed at least two hours post treatment in order to ensure that only endogenous levels of BNP are detected. SARS-CoV2/FLU/RSV Reviewed date:04/26/2024 09:31:02 AM Interpretation: Performing Lab:[address] [address] Notes/Report: Influenza A PCR NEGATIVE Negative Influenza B PCR NEGATIVE Negative Resp Syncy Virus RNA Qual PCR NEGATIVE Negative SARS COV2 PCR INHOUSE NEGATIVE Negative All test results must be correlated with clinical findings. Negative results do not preclude SARS-CoV2, influenza A virus, influenza B virus and/or RSV infection and should not be used as the sole basis for treatment or other patient management decisions. Negative results must be combined with clinical observations, patient history, and epidemiological information. This test has not been evaluated for monitoring treatment of infection. This test has been authorized by the FDA under an Emergency Use Authorization (EUA) for use by authorized laboratories. Testing performed on the [employer] GeneXpert utilizing real-time RT-PCR. All SARS CoV2 and positive influenza A/B results are reported to [facility]. Beta-Hydroxybutyrate Reviewed date:04/26/2024 09:30:42 AM Interpretation: Performing Lab:[address] [address] Notes/Report: Beta-Hydroxybutyrate 0.10 0.02-0.27 mmol/L XR chest 2V Reviewed date:04/26/2024 09:31:28 AM Interpretation: Performing Lab: Notes/Report: [address] [address] XRay Report Signed Patient: Tejinder Ramirez MR#: [id number] 516 : 1950 Acct:[id number] Age/Sex: 73 / M ADM Date: 04/26/24 Loc: .ED Attending Dr: Ordering Physician: Generic ED Physician Date of Service: 04/26/24 Procedure(s): XR chest 2V Accession Number(s): [id number] cc: Rahul Patel MD; Generic ED Physician CLINICAL HISTORY: cough, [place] Chest radiographs, 2 views Comparison: CR/SR - XR CHEST 2V - 04/21/24 16:10 EST Findings: The cardiomediastinal silhouette is not enlarged. Pulmonary vascularity is unremarkable. No focal consolidation or effusion. No pneumothorax. IMPRESSION: No acute cardiopulmonary findings. This document has been electronically signed by: Jovi Nelson DO on 04/26/2024 09:06:42 Dictated By: Jovi Nelson MD Signed By: <Electronically signed by Jovi Nelson MD in OV> 04/26/24906 DD/ 09 TD/TT: 04/26/24 09 Vp Director Of Creative Strategy: [address] [address] XRay Report Signed Patient: Aspen Ramirez rd MR#: [id number] 516 : 1950 Acct:[id number] Age/Sex: 73 / M ADM Date: 04/26/24 Loc: .ED Attending Dr: Ordering Physician: Generic ED Physician Date of Service: 04/26/24 Procedure(s): XR karie st 2V Accession Number(s): [id number] cc: Rahul Patel MD; Generic ED Physician CLINICAL HISTORY: co ugh, [place] Chest radiographs, 2 views Comparison: CR/SR - XR CHEST 2V - 04/21/24 16:10 EST Findings: The cardiomediastina l silhouette is not enlarged. Pulmonary vascularit y is unremarkable. No focal consolidati on or effusion. No pneumothorax. IMPRESSION: No acute cardiopulmo nary findings. This document has be en electronically signed by: Jovi Nelson DO on 04/26/2024 09:06:42 Dictated By: Jovi Nelson MD Signed By: <Electronically signed by Jovi Nelson MD in OV> 04/26/24906 DD/ 5 TD/TT: 04/26/249[address] Vp Director Of Creative Strategy: Reason For Referral No Information Medications Medication SIG (Take, Route, Frequency, Duration) Notes Start Date End Date Status Atorvastatin Calcium 40 MG TAKE 1 TABLET BY MOUTH ONCE DAILY for 90 Active Tamsulosin HCl 0.4 MG TAKE 1 CAPSULE BY MOUTH ONCE DAILY for 90 Active glyBURIDE 5 MG TAKE 1 TABLET BY PERNELL TH IN THE MORNING AND 0.5 TABLET IN THE EVENING Active Finasteride 5 MG TAKE 1 TABLET BY PERNELL TH ONCE DAILY for 90 Active Vitamin C 500 MG as directed Orally Not-Taking Immunizations Vaccine Route Administration Date Status Comme nts Prevnar 13 Unknown 05/28/2017 Refused TDaP Unknown 05/28/2017 Refused Fluarix Quadrivalent Unknown 11/26/2017 Refused Fluarix Quadrivalent Unknown 04/03/2019 Refused Fluarix Quadrivalent Unknown 12/15/2019 Refused Covid Vaccine Unknown 12/19/2020 Refused Fluarix Quadrivalent Unknown 12/19/2020 Refused Covid Vaccine Unknown 06/20/2021 Refused Influenza High Dose Unknown 11/13/2021 Refused Social History Tobacco Use: Social History Observation [...] Problem Status W/U Status Risk Notes Problem 736921157 Type 2 diabetes mellitus without complications (E11.9) Active confirmed 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 Problem Labile essential hypertension (216943946) Labile hypertension (I10) Active confirmed Problem 059195647 Bladder mass (N32.89) Active confirme d Problem 600085595 Pure hypercholesterolemia (E78.00) Active confirmed Problem 557850928 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 Problem 89462596484059490 Radial artery aneurysm, 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 Vital Signs Blood pressure diastolic 70 mm Hg 12/30/2023 nicky ght is down 5 pounds since 06-27-23 Height 70.5 in 12/30/2023 weight is down 5 pounds since 06-27-23 Blood pressure systolic 144 mm Hg 12/30/2023 weig ht is down 5 pounds since 06-27-23 Weight 170 lbs 12/30/2023 weight is down 5 pounds since 06-27-23 BMI 24.05 kg/m2 12/30/2023 weight is down 5 pounds since 06-27-23 Encounters Encounter Location Date Provider Diagnosis Rahul Patel MD [address] [place] [id number] 06/27/2023 Rahul Patel Type 2 diabetes gonzalo itus without complications E11.9 ; Malignant neoplasm of lower gum C03.1 ; Pure hypercholesterolemia E78.00 and Labile hypertension I10 Rahul Patel MD [address] [place] [id number] 12/30/2023 Rahul Patel Labile hypertension I10 ; Annual physical exam Z00.00 ; Pure hypercholesterolemia E78.00 ; Type 2 diabetes mellitus without complications E11.9 ; Calculus of parotid gland K11.5 ; Colon cancer screening Z12.11 and Depression screening Z13.31 Rahul Patel MD [address] [place] [id number] 04/23/2024 Rahul Patel MD [address] [place] [id number] 04/27/2024 Rahul Patel MD [address] [place] [id number] 12/10/2023 Rahul Patel MD [address] [place] [id number] 12/13/2023 Rahulcliff Patel MD [address] [place] [address] [place] [id number] 06/09/2024 Rahul Patel Assessments Encounter Date Diagnosis (ICD Code) Assessment Notes Treatment Notes Treatment Clinical Notes Section Notes 06/27/2023 Type 2 diabetes gonzalo itus without complications (ICD-10 - E11.9) stable, will contnue current regiment 06/27/2023 Malignant neoplasm o f lower gum (ICD-10 - C03.1) sees wne ent for follow up 12/30/2023 Labile hypertension (ICD-10 - I10) will observe 12/30/2023 Annual physical exam (ICD-10 - Z00.00) labs reviewed and discussed with patient 06/27/2023 Pure hypercholesterolemia (ICD-10 - E78.00) stable, will continue current regiment 12/30/2023 Pure hypercholesterolemia (ICD-10 - E78.00) will continue with present meds 06/27/2023 Labile hypertension (ICD-10 - I10) doing well, will continue to monitor 12/30/2023 Type 2 diabetes gonzalo itus without complications (ICD-10 - E11.9) good aic will continue current regiment 12/30/2023 Calculus of parotid gland (ICD-10 - K11.5) resolved at present. will go back to ent/ patient has an appt in Feb. 12/30/2023 Colon cancer screeni ng (ICD-10 - Z12.11) GUAIAC NEGATIVE 12/30/2023 Depression screening (ICD-10 - Z13.31) NEGATIVE SCREEN Plan Of Treatment Pending Test Test Name Order Date Electrocardiogram (EKG) 10/27/2015 Electrocardiogram (EKG) 11/02/2016 Electrocardiogram (EKG) 12/04/2018 Next Appt Details Provider Name:Rahul romero, 06/29/2024 09:00:00 AM, [address] [place] [address], [place] [address], [place], [place], [phone], Provider Name:Rahul romero, 12/25/2024 07:30:00 AM, [address] [place] [address], [place] [address], [place], [place], [phone], Provider Name:Rahul romero, 01/01/2025 08:30:00 AM, [address], [address], [place], [phone], Insurance Providers Payer Name Payer Address Payer Phone Subscriber Number Group Number Insured Name Patient Relationship to Insured Coverage Start Date Coverage End Date [address] [facility] JESSIKA NOGUERA [phone] [id number] TEJINDER RAMIREZ Self - patient is the insured 0 Medical (General) History Medical History History ICD Code discussed colonoscopy 2016; will think a bout cologuard 2018 refuses colonoscopy and cologard 2020 st ill refuses colonoscopy
--- OUTSIDE RECORDS SUMMARY | 2024-06-19 06:52 | XMS_ITS | Encounter Summary ---
Author Organization [facility] Address [address] [place] [address] Care Team Providers Care Thoroughbred Horse Farm Manager Name Role Phone Rahul Patel Primary Care Provider [phone] Encounter Details Date Type Department Care Team (Late st Contact Info) Description 10/02/2021 Lab Requisition [facility] [address] [place] [address] Kev Pollard MD [address] [place] [id number] Social History Tobacco Use Types Packs/Day Years [...] of this encounter Procedures * Due to [place] [employer] law, this organization might not be sharing negative HIV tests. Procedure Name Priority Date/Time Associated Diagnosis Comments TISSUE EXAM Routine 10/02/2021 12:34 PM EDT documented in this encounter Results * Due to [place] [employer] law, this organization might not be sharing negative HIV tests. * (ABNORMAL) Tissue Exam (10/02/2021 12:34 PM EDT) Final Diagnosis Review of Outside Slides Received from 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 [employer] MANUAL 10/03/2021 3:14 PM EDT [facility] at 1514 EDT Clinical History NA [employer] MAN[employer] 10/03/2021 3:14 PM EDT [facility] Gross Consult Client Facility: [facility] Slide Identificatio n: [id number] Number of Glass Slides Received: 1 Number of Blocks Received: 0 Client Pathologist: Reyes Schilling Accompanying Report Received: yes [employer] MANUAL 10/03/2021 3:14 PM EDT [facility] Gross Description User Grossing complete by Silvana Graham on 10/02/2021 12:36 PM [employer] MANUAL 10/03/2021 3:14 PM EDT [facility] Embedded Images [employer] MANUAL 10/03/2021 3:14 PM EDT [facility] Resulting Agency Case was signed out at [facility], Department of Pathology, [employer] 3 CLIA [id number] [employer] MANUAL 10/03/2021 3:14 PM EDT [facility] Abnormal Yes(A) (none) [employer] MANUAL 10/03/2021 3:14 PM EDT [facility] Tissue Oral cavity structure / Unknown 10/02/2021 12:34 PM EDT 10/02/2021 12:35 PM EDT us Kev Pollard MD LAB PATHOLOGY/CYTOLOGY ORDER RAFAEL Final Result [facility] [address] [place] [address], documented in this encounter Visit Diagnoses Not on filedocumented in this encounter Care Teams Thor[employer] Horse Farm Manager Relationship Specialty Start Date End Date JorgeTraceen [address] [place] [address] [place] [address] PCP - General Internal Medicine 09/22/21 documented as of this encounter
--- OUTSIDE RECORDS SUMMARY | 2024-06-19 06:52 | XMS_ITS ---
Author Organization Rahul Patel MD Address [address] [facility] [address] [place] [phone] Care Team Providers Care Railroad Dining Car Steward/Stewardess Name Role Phone Rahul Patel Primary Care Provider REASON FOR VISIT ER Encounters Encounter Location Date Provider Diagnosis Rahul Patel MD [address] [facility] [address] [place] [phone] 04/23/2024 Rahul Patel Plan Of Treatment Next Appt Details Provider Name:Rahul romero, 06/29/2024 09:00:00 AM, [address] [place] [address], [address], [phone], Provider Name:Rahul romero, 12/25/2024 07:30:00 AM, [address] [place] [address], [address] [place] [address], [phone], Provider Name:Rahul romero, 01/01/2025 08:30:00 AM, [address] [place] [address], [address], [phone], Progress Notes * ROSALES JONESDOB:1950 (73 yo M)Acc No.[id number]:04/23/2024 Patient:?ROSALES JONES :1950???Age:73 Y???Sex:Male Address: [place], [address] * true * Date:? Generated for Angie joseph/Denzel/eTransmitting on:?06/19/2024 06:51 AM EDT
[2024-06-19 07:23] LABS: Estimated Average Glucose 140 mg/dL; Hemoglobin A1C 156.8159 umol/L; Hemoglobin A1c % 6.5 % (<6.0); Total Hemoglobin (HGBA1C) 3334.8352 umol/L
[2024-06-19 07:53] LABS: Alanine Aminotransferase 24 U/L (0-40); Aspartate Amino Transferase 24 U/L (5-37); Bilirubin Direct 0.2 mg/dL (0.0-0.5); Bilirubin Total 0.6 mg/dL (0.0-1.0); Cholesterol 146 mg/dL (<200); Glucose Fasting 138 mg/dL (60-99); HDL Cholesterol 49 mg/dL (>40); LDL Cholesterol Calculated 83 mg/dL (<100); Total Protein 6.5 g/dL (6.5-8.0); Triglycerides 71 mg/dL (<150)
[2024-06-19 08:08] LABS: Alkaline Phosphatase 58 U/L (39-117)
[2024-06-19 08:18] LABS: Vitamin D 25-OH Total 61.5 ng/mL (>30)
[2024-06-19 08:19] LABS: PSA,Total (Free>4and<10) 5.96 ng/mL (0.00-4.00)
[2024-06-19 08:29] LABS: Folate 10.8 ng/mL (> or = 4.0); Vitamin B12 471 pg/mL (200-900)
[2024-06-19 08:52] LABS: Reflex LDLD? No
[2024-06-22 11:19] LABS: Free Prostate Spec Ag 0.8 ng/mL; Percent Free Prostate Spec Ag 13 % (calc) (>25); Prostate Specific Ag Total 6.3 ng/mL (< OR = 4.0)
== END 2024-06-19 06:50 | disposition home or self-care (01) ==
LOC: HO.LAB 06:49
PROVIDERS: PCP Internal Medicine; Visit Provider Internal Medicine
DX: E11.9 Type 2 diabetes mellitus without complications (principal); E78.00 Pure hypercholesterolemia, unspecified; Z12.5 Encounter for screening for malignant neoplasm of prostate
CPT/HCPCS: 36415; 80061; 80076; 82306; 82607; 82746; 82947; 83036; 84153; 84154

== ENCOUNTER 2024-12-28 09:20 | Outpatient (REF) | payer OTHER, SELFPAY ==
[2024-12-28 09:37] LABS: MANUAL DIFF FLAG NO
--- OUTSIDE RECORDS SUMMARY | 2024-12-28 10:24 | XMS_ITS | Encounter Summary ---
Author Organization [facility] Address [address] [place] [address] Care Team Providers Care Line Controller Name Role Phone Rahul Patel Primary Care Provider [phone] Encounter Details Date Type Department Care Team (Late st Contact Info) Description 09/28/2021 Orders Only [facility] Xray [address] [place] [address] Kyle Sierra MD [address] [place] [address] Social History Tobacco Use Types Packs/Day Years [...] on filedocumented in this encounter Care Teams Line Controller Relationship Specialty Start Date End Date Rahul Patel [address] [place] [address] [place] [address] PCP - General Internal Medicine 09/22/21 documented as of this encounter
--- OUTSIDE RECORDS SUMMARY | 2024-12-28 10:24 | XMS_ITS | Encounter Summary ---
Author Organization [facility] Address [address] [place] [address] Care Team Providers Care In Store Marketing Associate Name Role Phone Physician, No Pcp Primary Care Provider Unavaila ble Encounter Details Date Type Department Care Team (Late st Contact Info) Description 07/28/2024 Lab Requisition [facility] - Main Lab [address] [facility] [place] [address] Wolf Knowles MD [address] [facility] [address] [place] [phone] Elevated prostate specific antigen (PSA) Social History Tobacco Use Types Packs/Day Years Used Date Smoking Tobacco: Never Assessed Sex and Gender Information Value Date Recorded Sex Assigned at Not on file Legal Sex Male 9:22 AM EDT Gender Identity Not on file Sexual Orientation Not on file documented as of this encounter Plan of Treatment Not on file documented as of this encounter Procedures Procedure Name Priority Date/Time Associated Diagnosis Comments AP OUTSIDE CONSULT Routine 07/23/2024 Elevated prostate specific antigen (PSA) documented in this encounter Results * Anatomic pathology outside consult (07/23/2024) Final Diagnosis A. Prostate, Left Middle Cardale Biopsy: - Prostatic acinar adenocarcinoma (conventional type), grade group 2 (Jori score 3+4=7). - Percentage pattern 4: 20%. - Tumor continuously involves 13% of 1 of 1 tissue core. B. Prostate, Left Lateral Cardale Biopsy: - Prostatic acinar adenocarcinoma (conventional type), grade group 3 (Jori score 4+3=7). - Percentage pattern 4: 90%. - Tumor continuously involves 5% of 1 of 1 tissue core. C. Prostate, Left Middle Middle Biopsy: - Prostatic acinar adenocarcinoma (conventional type), grade group 3 ([place] score 4+3=7). - Percentage pattern 4: 60%. - Tumor continuously involves 25% of 1 of 1 tissue core. - Two tumor foci. D. Prostate, Left Lateral Middle Biopsy: - Benign prostatic tissue. E. Prostate, Left Middle Base Biopsy: - Benign prostatic tissue. F. Prostate, Left Lateral Base Biopsy: - Benign prostatic tissue. G. Prostate, Right Middle Cardale Biopsy: - Prostatic acinar adenocarcinoma (conventional type), grade group 3 (Jori score 4+3=7). - Percentage pattern 4: 75%. - Tumor continuously involves 85% of 1 of 1 tissue core. H. Prostate, Right Lateral Cardale Biopsy: - Prostatic acinar adenocarcinoma (conventional type), grade group 3 (Jori score 4+3=7). - Percentage pattern 4: 90%. - Tumor continuously involves 60% of 1 of 1 tissue core. I. Prostate, Right Middle Middle Biopsy: - Prostatic acinar adenocarcinoma (conventional type), grade group 3 (Jori score 4+3=7). - Percentage pattern 4: 90%. - Tumor continuously involves 38% of 1 of 1 tissue core. - Two tumor foci. J. Prostate, Right Lateral Middle Biopsy: - Benign prostatic tissue. K. Prostate, Right Middle Base Biopsy: - Benign prostatic tissue. L. Prostate, Right Lateral Base Biopsy: - Benign prostatic tissue. M. Prostate, Right PZ Lesion Biopsy x3: - Prostatic acinar adenocarcinoma (conventional type), grade group 3 (Jori score 4+3=7). - Percentage pattern 4: 50%. - Tumor continuously involves 33% of overall tissue, present in 2 of 3 tissue cores. N. Prostate, Right TZ Lesion Biopsy x3: - Prostatic acinar adenocarcinoma (conventional type), grade group 5 ([place] score 4+5=9). - Percentage pattern 4: 70%. - Percentage pattern 5: 5%. - Tumor continuously involves 66% of overall tissue, present in 3 of 3 tissue cores. - Intraductal carcinoma is present. 07/31/2024 10:47 AM EDT [facility] Clinical Information Elevated PSA = 7.2 (05/13/24) [id number] 07/31/2024 10:47 AM EDT [facility]) [facility] Gross Description A. Prostate, Left Middle Cardale Biopsy: Received, properly labeled, are two H and E stained slides and two unstained slides. B. Prostate, Left Lateral Cardale Biopsy: Received, properly labeled, are two H and E stained slides and two unstained slides. C. Prostate, Left Middle Middle Biopsy: Received, properly labeled, are two H and E stained slides and two unstained slides. D. Prostate, Left Lateral Middle Biopsy: Received, properly labeled, are two H and E stained slides and two unstained slides. E. Prostate, Left Middle Base Biopsy: Received, properly labeled, are two H and E stained slides and two unstained slides. F. Prostate, Left Lateral Base Biopsy: Received, properly labeled, are two H and E stained slides and two unstained slides. G. Prostate, Right Middle Cardale Biopsy: Received, properly labeled, are two H and E stained slides and two unstained slides. H. Prostate, Right Lateral Cardale Biopsy: Received, properly labeled, are two H and E stained slides and two unstained slides. I. Prostate, Right Middle Middle Biopsy: Received, properly labeled, are two H and E stained slides and two unstained slides. J. Prostate, Right Lateral Middle Biopsy: Received, properly labeled, are two H and E stained slides and two unstained slides. K. Prostate, Right Middle Base Biopsy: Received, properly labeled, are two H and E stained slides and two unstained slides. L. Prostate, Right Lateral Base Biopsy: Received, properly labeled, are two H and E stained slides and two unstained slides. M. Prostate, Right PZ Lesion Biopsy x3: Received, properly labeled, are two H and E stained slides and two unstained slides. N. Prostate, Right TZ Lesion Biopsy x3: Received, properly labeled, are two H and E stained slides and two unstained slides. /rc 07/31/2024 10:47 AM [facility] Disclaimer Unless otherwise specified, all tissue is 10% NB formalin fixed and paraffin embedded. Technical pathology services provided by [facility] at [address] [place] [address] [address], [place] [address] (CLIA #[id number]/Farhana Gonsalves MD, Extrusion Press Operator) 07/31/2024 10:47 AM [facility] Tissue Prostate / Unknown 07/23/20242024 9:32 AM EDT Tissue specimen (specimen) Prostate / Unknown 07/23/2024 07/28/2024 9: 32 AM EDT Tissue specimen (specimen) Prostate / Unknown 07/23/2024 07/28/2024 9: 32 AM EDT Tissue specimen (specimen) Prostate / Unknown 07/23/2024 07/28/2024 9: 32 AM EDT Tissue specimen (specimen) Prostate / Unknown 07/23/2024 07/28/2024 9: 32 AM EDT Tissue specimen (specimen) Prostate / Unknown 07/23/2024 07/28/2024 9: 32 AM EDT Tissue specimen (specimen) Prostate / Unknown 07/23/2024 07/28/2024 9: 32 AM EDT Tissue specimen (specimen) Prostate / Unknown 07/23/2024 07/28/2024 9: 32 AM EDT Tissue specimen (specimen) Prostate / Unknown 07/23/2024 07/28/2024 9: 32 AM EDT Tissue specimen (specimen) Prostate / Unknown 07/23/2024 07/28/2024 9: 32 AM EDT Tissue specimen (specimen) Prostate / Unknown 07/23/2024 07/28/2024 9: 32 AM EDT Tissue specimen (specimen) Prostate / Unknown 07/23/2024 07/28/2024 9: 32 AM EDT Tissue specimen (specimen) Prostate / Unknown 07/23/2024 07/28/2024 9: 32 AM EDT Tissue specimen (specimen) Prostate / Unknown 07/23/2024 07/28/2024 9: 32 AM EDT us Wolf Knowles MD LAB PATHOLOGY ORDERABLES Final Result [facility] [address] [place] [address], documented in this encounter Visit Diagnoses Diagnosis Elevated prostate specific antigen (PSA) documented in this encounter Care Teams In Store Marketing Associate Relationship Specialty Start Date End Date Physician, No Pcp PCP - General 07/28/24 documented as of this encounter
--- OUTSIDE RECORDS SUMMARY | 2024-12-28 10:24 | XMS_ITS | Clinical Summary ---
Author Organization [address] [facility] Address [address] [place] [address] Phone Care Team Providers Care Metal Milling Machine Operator Name Role Phone Physician, No Pcp Primary Care Provider Unavaila ble Social History Tobacco Use Types Packs/Day Years Used Date Smoking Tobacco: Never Assessed Sex and Gender Information Value Date Recorded Sex Assigned at Not on file Legal Sex Male 9:22 AM EDT Gender Identity Not on file Sexual Orientation Not on file Plan of Treatment Health Maintenance Due Date Last Done Comments Colorectal Cancer Screening: Colonoscopy 1950 DTaP,Tdap,and Td Vaccines (1 - Tdap) 07/22/1971 Pneumococcal Vaccine: 50+ Ye ars (1 of 1 - PCV) 2002 Zoster Vaccines (1 of 2) 2002 Depression Screening 03/04/2024 Abdominal Aortic Aneurysm (A AA) Screen 07/28/2024 Cholesterol Screening (Lipid Panel) 07/28/2024 Falls Risk Assessment 07/28/2024 Hepatitis C Screening 07/28/2024 Social Influencers of Health Screening 07/28/2024 COVID-19 Vaccine ( - 2023-2 5 season) 2024 Influenza Vaccine (#1) 2024 RSV Immunization Adult Patie nts (1 - 1-dose 75+ series) 07/22/2027 HIB Vaccines Aged Out No longer eligi ble based on patient's age to complete this topic HPV Vaccines Aged Out No longer eligi ble based on patient's age to complete this topic Hepatitis A Vaccines Aged Out No long er eligible based on patient's age to complete this topic Hepatitis B Vaccines Aged Out No long er eligible based on patient's age to complete this topic IPV Vaccines Aged Out No longer eligi ble based on patient's age to complete this topic MMR Vaccines Aged Out No longer eligi ble based on patient's age to complete this topic Meningococcal ACWY Vaccine Aged Out N o longer eligible based on patient's age to complete this topic Meningococcal B Vaccine Aged Out No l onger eligible based on patient's age to complete this topic RSV Immunization Patients Un dorita 20 months Aged Out No longer eligible b ased on patient's age to complete this topic Varicella Vaccines Aged Out No longer eligible based on patient's age to complete this topic Insurance [facility] Care Teams Metal Milling Machine Operator Relationship Specialty Start Date End Date Physician, No Pcp PCP - General 07/28/24
--- OUTSIDE RECORDS SUMMARY | 2024-12-28 10:24 | XMS_ITS | Clinical Summary ---
Author Organization [facility] Address [address] [place] [address] Care Team Providers Care Chief Projectionist Name Role Phone Jorge Rahul Primary Care Provider [phone] Allergies Active Allergy Reactions Criticality Noted Date [...] 72 11/04/2021 8:51 AM EDT Temperature 36.5 C (97.7 F) 11/04/2021 8:51 AM EDT Respiratory Rate 18 11/04/2021 8:51 AM EDT [...] Health Irene ual Screening 03/04/2024 Influenza Vaccine (#1) 2024 RSV Vaccine (60+ years old a nd patients) (1 - 1-dose 75+ series) 07/22/2027 Hepatitis B Vaccines Aged Out No long er eligible based on patient's age to complete this topic Insurance MEDICARE [facility] Advance Directives * Full Code (Latest Code Status on File) Date Activated Date Inactivated Comments 11/03/2021 11:51 AM 11/04/2021 3:03 PM Healthcare Agents on File Name Relationship Healthcare Agent Relationshi p Communication Noemi Ramirez Spouse Next of Kin [email or web address]. PharmAssistant Care Teams Chief Projectionist Relationship Specialty Start Date End Date Rahul Patel [address] [place] [address] dr Nir Medel [place] [id number] PCP - General Internal Medicine 09/22/21
--- OUTSIDE RECORDS SUMMARY | 2024-12-28 10:24 | XMS_ITS | Encounter Summary ---
Author Organization [facility] Address [address] [place] [address] Care Team Providers Care Copra Processor Name Role Phone Rahul Patel Primary Care Provider [phone] Encounter Details Date Type Department Care Team (Late st Contact Info) Description 10/02/2021 Lab Requisition [facility] Lab [address] [place] [address] Kev Pollard MD [address] [place] [id number] Social History Tobacco Use Types Packs/Day Years [...] of this encounter Procedures * Due to [place] law, this organization might not be sharing negative HIV tests. Procedure Name Priority Date/Time Associated Diagnosis Comments TISSUE EXAM Routine 10/02/2021 12:34 PM EDT documented in this encounter Results * Due to [place] law, this organization might not be sharing negative HIV tests. 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 [email or web address] MANUAL 10/03/2021 3:14 PM EDT [facility] at 1514 EDT Clinical History NA [facility] 10/03/2021 3:14 PM EDT [facility] Gross Consult Client Facility: [facility] Slide Identificatio n: [id number] Number of Glass Slides Received: 1 Number of Blocks Received: 0 Client Pathologist: Reyes Schilling Accompanying Report Received: yes [email or web address] MANUAL 10/03/2021 3:14 PM EDT [facility] Gross Description User Grossing complete by Silvana Graham on 10/02/2021 12:36 PM [email or web address] MANUAL 10/03/2021 3:14 PM EDT [facility] Embedded Images [facility] MAN[facility] 10/03/2021 3:14 PM EDT [facility] Resulting Agency Case was signed out at [facility], Department of Pathology, [facility] 3 CLIA [id number] [email or web address] MANUAL 10/03/2021 3:14 PM EDT [facility] Abnormal Yes(A) (none) [email or web address] MANUAL 10/03/2021 3:14 PM EDT [facility] Tissue Oral cavity structure / Unknown 10/02/2021 12:34 PM EDT 10/02/2021 12:35 PM EDT us Kev Pollard MD LAB PATHOLOGY/CYTOLOGY ORDER RAFAEL Final Result [facility] [address] [place] [address], documented in this encounter Visit Diagnoses Not on filedocumented in this encounter Care Teams Copra Processor Relationship Specialty Start Date End Date JorgeTraceen [address] [place] [address] [place] [address] PCP - General Internal Medicine 09/22/21 documented as of this encounter
--- OUTSIDE RECORDS SUMMARY | 2024-12-28 10:24 | XMS_ITS | Encounter Summary ---
Author Organization [facility] Address [address] [place] [address] Care Team Providers Care Inventory Control Coordinator Name Role Phone Rahul Patel Primary Care Provider [phone] Encounter Details Date Type Department Care Team (Late st Contact Info) Description 01/22/2022 myChart Message [facility] Operating Room [address] [place] [address] Mychart, Generic Provider [address] [place], [place] [id number] Need to reschedule appointment with Dr. Pollard [...] on filedocumented in this encounter Care Teams Inventory Control Coordinator Relationship Specialty Start Date End Date Rahul Patel [address] [place] [address] [place] [address] PCP - General Internal Medicine 09/22/21 documented as of this encounter
[2024-12-28 10:28] LABS: Hematocrit 34.7 % (42.0-52.0); Hemoglobin 11.6 g/dl (14.0-18.0); Imm Gran Abs Auto 0.03 X10*3/uL (0.00-0.03); Imm Gran Pct Auto 0.7 % (0.0-0.4); Lymphocytes Absolute Auto 0.3 X10*3/uL (1.2-4.9); Mean Corpuscular HGB Conc 33.4 g/dl (31.0-36.0); Mean Corpuscular Hemoglobin 31.0 pg (27.0-33.0); Mean Corpuscular Volume 92.8 fL (80.0-98.0); NRBC Abs Auto 0.000 X10*3/uL (0.0-0.012); NRBC Pct Auto 0.0 /100WBC (0.0-0.2); Platelet Count 186 X10*3/uL (160-400); Red Blood Count 3.74 X10*6/uL (4.60-5.80); White Blood Count 4.1 X10*3/uL (4.8-10.8)
[2024-12-28 10:42] LABS: Appearance Urine Clear; Glucose Urine UA Negative (Negative); PH 7.0 (5.0-9.0); Specific Gravity - Urine 1.015 (1.005-1.025)
[2024-12-28 11:09] LABS: Alanine Aminotransferase 38 U/L (0-40); Albumin Level 4.3 g/dL (3.5-5.0); Alkaline Phosphatase 76 U/L (39-117); Anion Gap 10 (12-20); Aspartate Amino Transferase 27 U/L (5-37); Blood Urea Nitrogen 19 mg/dL (9-16); Calcium 9.1 mg/dL (8.4-10.2); Carbon Dioxide 32 mmol/L (22-29); Chloride 103 mmol/L (96-108); Cholesterol 128 mg/dL (<200); Estimated Glomerular Filt Rate > 60; HDL Cholesterol 47 mg/dL (>40); Potassium 3.4 mmol/L (3.3-5.1); Sodium 142 mmol/L (135-145); Total Protein 6.4 g/dL (6.5-8.0); Triglycerides 69 mg/dL (<150)
[2024-12-28 11:21] LABS: Microalbum/Creatinine Ratio Ur 13.3 ug/mg cr (<30)
== END 2024-12-28 09:21 | disposition home or self-care (01) ==
LOC: HO.LAB 09:20
PROVIDERS: PCP Internal Medicine; Visit Provider Internal Medicine
DX: Z00.00 Encounter for general adult medical examination without abnormal findings (principal); I10 Essential (primary) hypertension; E11.9 Type 2 diabetes mellitus without complications; E78.00 Pure hypercholesterolemia, unspecified
CPT/HCPCS: 36415; 80053; 80061; 81001; 82043; 82570; 83036; 85025